=== PATIENT | male | born 1940 | race Caucasian/White ===

== ENCOUNTER 2017-05-29 10:09 | Inpatient (IN) ==
[2017-05-29] MEDS ORDERED: methylPREDNISolone 125 MG/2 ML VIAL IVP ONE (10:30)
[2017-05-29] MEDS ORDERED: Ipratropium/Albuterol Neb 3 ML IH ONE (10:30)
--- NOTE | 2017-05-29 10:34 | Emergency Department Note ---
Disposition Clinical Impression: Hypoxia Community acquired pneumonia Qualifiers: Laterality: left Lung location: unspecified part of lung Qualified Code(s): J18.9 - Pneumonia, unspecified organism Dyspnea Qualifiers: Dyspnea type: unspecified Qualified Code(s): R06.00 - Dyspnea, unspecified Disposition: Admitted As Inpatient Condition: Good Time of Disposition: 11:53 SOB HPI - General Chief Complaint: ED Shortness of Breath/Dyspnea Stated Complaint: RUPA Time Seen by Provider: 05/29/17 10:15 Source: patient Limitations: no limitations Nursing Notes Reviewed: Yes Vital Signs Reviewed: Yes - History of Present Illness 76-year-old male history of COPD, no home oxygenation supplementation presents to the ED for difficulty breathing. Gradually worsened over the past 3 days. He has been having more productive cough which changes sputum color. He has been using his Symbicort and albuterol as directed. Denies any fevers or chills. Denies any chest pain associated. He reports a history of COPD exacerbation many years ago that did not require hospitalization. Denies any recent long-distance travel or 6 contacts. No leg swelling. Denies any recent hospitalization within the 3 months. Reports a history of a blood clot which she currently takes Eliquis. Will treat them as a COPD exacerbation with a DuoNeb treatments and steroids. Will reassess and if not better may consider further imaging. Pt Subjective Complaint: shortness of breath, cough - Related Data Home Medications Medication Instructions Recorded Confirmed Aclidinium [place] [Tudorza 1 puff IH BID 05/29/17 05/29/17 Pressair] Albuterol Sulfate [Proair Hfa] 2 puff IH Q6H PRN 05/29/17 05/29/17 Apixaban [Eliquis] 5 mg PO BID 05/29/17 05/29/17 Budesonide/Formoterol 160/4.5 2 puff IH BIDR 05/29/17 05/29/17 [Symbicort 160/4.5] Carvedilol [Coreg] 25 mg PO BID 05/29/17 05/29/17 Furosemide [Lasix] 20 mg PO Q48H 05/29/17 05/29/17 HYDROcodone/Acet 10/325 mg [[place] 1 tab PO TID 05/29/17 05/29/17 10-325 mg] Losartan Potassium [Cozaar] 100 mg PO DAILY 05/29/17 05/29/17 Potassium Chloride [K-Tab ER] 20 meq PO Q48H 05/29/17 05/29/17 Pravastatin Sodium [Pravachol] 40 mg PO DAILY 05/29/17 05/29/17 Allergies Allergy/AdvReac Type Severity Reaction Status Date / Time doxycycline Allergy Rash Verified 05/29/17 10:14 Past Medical History - Past Medical History Attestation: Yes The following information was validated with the patient. Source: patient Medical history: Reports: cancer, CHF, COPD - Social History Smoking Status: Former smoker Alcohol use: Reports: occasionally Drug use: Reports: none Physical Exam - General Limitations: no limitations General appearance: alert, in no apparent distress - Head Head exam: atraumatic, normocephalic, normal inspection - Eye Eye exam: Present: normal appearance, PERRL, EOMI - ENT ENT exam: normal exam, normal oropharynx, mucous membranes moist - Neck Neck exam: Present: normal inspection, full ROM, trachea midline - Chest Chest inspection: Present: normal inspection, symmetric chest wall rise. Absent : tenderness - Respiratory Respiratory exam: Present: wheezes. Absent: stridor, accessory muscle use, prolonged expiratory phase - Expanded Respiratory Exam Location: wheezes: Right, Left, Lower, rales: Left, Lower, decreased breath sounds: Left - Cardiovascular Cardiovascular exam: Present: regular rate, normal rhythm, normal heart sounds - Abdominal Exam Abdominal exam: Present: soft, Non-Tender, normal bowel sounds. Absent: tenderness, distention, guarding, rebound, rigidity - Extremities Exam Extremities exam: Present: normal inspection, full ROM, calf tenderness. Absent : tenderness, normal capillary refill, pedal edema - Back Exam Back exam: Present: normal inspection, full ROM. Absent: tenderness - Neurological Exam Neurological exam: Present: alert, oriented X3 - Psychiatric Psychiatric exam: Present: normal affect, normal mood - Skin Skin exam: Present: warm, dry, intact, normal color. Absent: rash, cyanosis, diaphoresis Course - Reevaluation(s) Reevaluation #1: After breathing treatment his symptoms have improved however continues to be hypoxic off oxygen supplementation. He continues to sat 92 to 93% on 2 L nasal cannula. His lungs are more improved with some mild wheezing on the right. There is a more audible crackle in the left lower lung field. Review of his chest x-ray shows suggested of left lower lobe pneumonia. He denies any prior hospitalizations. This is likely a community acquired pneumonia. He only meets 1 of 4 SIRS criteria at this time for his tachycardia. He has a mild leukocytosis of 11. At this time he does not appear septic. Will treat them with IV antibiotics azithromycin and ceftriaxone. He will likely need admission. He is in agreement with this plan. Reevaluation #2: Patient admits that his oxygen level was been lower the past several months. 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 Duong did a 6 minute walk test and likely he may require oxygen in the future. He reports agonize medications earlier this morning including his losartan. His blood pressure has come down to systolic 90s. He denies any chest pain or worsening shortness of breath. He does not appear septic at this time. Will gently hydrated him normal saline. Blood cultures and elected have been ordered. Impression is community acquired pneumonia, dyspnea and hypoxia. There may be a concomitant COPD exacerbation on top of that. He will likely need scheduled duoneb treatment. - Consultations Consultation #1: Spoke with on-call hospitalist umu Tsang to admit for CAP and hypoxia. No further orders at this time Vital Signs Temperature 98.6 F 05/29/17 10:10 Pulse Rate 111 05/29/17 10:10 Respiratory Rate 22 05/29/17 10:10 Blood Pressure 105/66 05/29/17 10:10 O2 Sat by Pulse Oximetry 88 05/29/17 10:10 Temperature 98.6 F 05/29/17 10:10 Pulse Rate 102 05/29/17 12:12 Respiratory Rate 20 05/29/17 13:02 Blood Pressure 107/80 05/29/17 13:02 O2 Sat by Pulse Oximetry 98 05/29/17 12:12 Oxygen Delivery Oxygen Delivery Nasal Cannula Shortness of Breath/Dyspnea - MDM Narrative Medical decision making narrative: Patient was discussed with my attending physician who agrees with ED management and final disposition. They independently evaluated the patient. Please refer to their attestation to this encounter for additional information. This note was generated by [employer] voice recognition software and as a result grammatical or spelling errors may occur using this program. - Medical Records Medical records reviewed: Yes I reviewed the patient's medical records. - Lab Data Lab results reviewed: Yes I reviewed the patient's lab results. Result diagrams: 05/29/17 10:34 05/29/17 10:34 Lab Results 05/29/17 05/29/17 05/29/17 Range/Units 10:34 10:34 12:20 WBC 11.4 H (4.3-11.1) K/mcL RBC 4.36 (4.19-5.50) M/mcL Hgb 14.3 (12.9-16.9) g/dL Hct 42.9 (37.5-50.1) % MCV 98.4 (83.0-100.0) fL MCH 32.8 (28.0-33.3) pg MCHC 33.3 (31.6-35.5) g/dL RDW 13.4 (11.5-14.5) % Plt Count 110 L (140-400) K/mcL MPV 9.7 (9.4-12.4) fL Immature Gran % 2.0 (0-4) % Seg Neutrophils % 75.0 % Lymphocytes % 8.0 % Monocytes % 14.4 % Eosinophils % 0.4 % Basophils % 0.2 % Neutrophils # 8.6 (1.6-8.9) K/mcL Lymphocytes # 0.9 (0.6-4.6) K/mcL Monocytes # 1.7 H (0.0-1.3) K/mcL Eosinophils # 0.1 (0.0-0.6) K/mcL Basophils # 0.0 (0.0-0.2) K/mcL Sodium 138 (136-145) mEq/L Potassium 4.1 (3.5-4.5) mEq/L Chloride 105 (98-109) mEq/L Carbon Dioxide 23 (19-29) mEq/L BUN 28 H (8-26) mg/dL Creatinine 1.34 H (0.72-1.25) mg/dL Est GFR ( Amer) > 60 (> 60) Est GFR (Non-Af Amer) 52 L (> 60) BUN/Creatinine Ratio 21 (6-26) Glucose 135 H (70-99) mg/dL Calculated Osmolality 294 (280-300) Lactic Acid 1.6 (0.5-2.2) mmol/L Calcium 9.4 (8.6-10.8) mg/dL - Radiology Data Radiology results reviewed: Yes I reviewed the patient's radiology results. Chest X-Ray 05/29/17 10:30 IMPRESSION: Subtle patchy left lower lobe airspace disease suggesting left lower lobe pneumonia. Recommend clinical correlation and follow-up to resolution. D/ / Thor Taylor MD / Thor Taylor MD Interpreting Provider: Thor Taylor MD - EKG Data EKG attestation: Yes I reviewed and interpreted this EKG. EKG results narrative: EKG performed 1022 atrial fibrillation 10 2 bpm, QRS to, no ST elevations or depression, no T wave inversion, intervals are within normal limits. Compared to old EKG performed 11/03/2015 shows similar consistent findings no acute ischemic changes. Attestation Statement - Attestation Attestation: I examined this patient and my medical decision-making was reviewed with the Resident Physician. I agree with the documented findings, disposition and treatment plan as described except to the extent set forth below. Sx much improved after treatment in ED, but still borderline hypoxic with COPD exacerbation secondary to LLL pneumonia. Dr. Lira accepted for admission.
[2017-05-29 10:45] LABS: Basophils % 0.2 %; Eosinophils # 0.1 K/mcL (0.0-0.6); Eosinophils % 0.4 %; Hematocrit 42.9 % (37.5-50.1); Hemoglobin 14.3 g/dL (12.9-16.9); Lymphocytes # 0.9 K/mcL (0.6-4.6); Mean Corpuscular HGB Conc 33.3 g/dL (31.6-35.5); Mean Corpuscular Hemoglobin 32.8 pg (28.0-33.3); Mean Corpuscular Volume 98.4 fL (83.0-100.0); Mean Platelet Volume 9.7 fL (9.4-12.4); Monocytes # 1.7 K/mcL (0.0-1.3); Monocytes % 14.4 %; Neutrophils # 8.6 K/mcL (1.6-8.9); Platelet Count 110 K/mcL (140-400); Red Blood Count 4.36 M/mcL (4.19-5.50); Red Cell Distribution Width 13.4 % (11.5-14.5)
[2017-05-29 10:54] LABS: BUN/Creatinine Ratio 21 (6-26); Blood Urea Nitrogen 28 mg/dL (8-26); Calcium 9.4 mg/dL (8.6-10.8); Carbon Dioxide 23 mEq/L (19-29); Chloride 105 mEq/L (98-109); Glucose 135 mg/dL (70-99); Osmolality,Calculated 294 (280-300); Potassium 4.1 mEq/L (3.5-4.5); Sodium 138 mEq/L (136-145); eGFR For African Americans > 60 (> 60); eGFR For Non-African Americans 52 (> 60)
[2017-05-29] MEDS ORDERED: Albuterol 2.5 MG/3 ML NEBULIZER IH STA (11:40)
[2017-05-29] MEDS ORDERED: Azithromycin 500 MG in D5% in Water 250 ML IVPB ONE (11:51)
[2017-05-29] MEDS ORDERED: cefTRIAXone 1,000 MG in Water for inj. (sterile) 10 ML IVPB ONE (11:51)
[2017-05-29] MEDS ORDERED: 0.9 % Sodium Chloride 1,000 ML IVC ONE ×2 (11:52→13:11)
[2017-05-29] MEDS ORDERED: Naloxone 0.4 MG/ML INJ IVP PRN ×2 (12:58→20:07)
--- NOTE | 2017-05-29 13:15 | Internal Med History&Physical ---
<Arpan Bustos J - Last Filed: 05/29/17 13:51> Date of Encounter: 05/29/17 Time of Encounter: 13:02 Assessment and Plan (1) Community acquired pneumonia Status: Acute Afebrile, hemodynamically stable, A. fib rate of 102, mild leukocytosis lactate 1.6. Does not appear toxic; sepsis r/o. Given 1LNS in ED and BC sent x2. CXR show LLL PNA, remains mildly dyspneic on 3LNC. Does not wear home O2. SOB has improved with nebulizer and IV steroids Start Azithromycin 500mg IVPB QD, Ceftriaxone 1gm IVPD QD Obtain sputum; narrow ATB based on cultures Solumedrol 40mg IVP Q8hrs Duoneb JENA Qhrs Continuous tele and O2 monitoring CBC, BMP in the morning Qualifiers: Laterality: left Lung location: unspecified part of lung Qualified Code(s ): J18.9 - Pneumonia, unspecified organism (2) Hypoxia Status: Acute Was hypoxic on arrival, has improved since placing on 3LNC, and receiving nebulizer treatment. CXR dx of PNA. See plan above. (3) COPD (chronic obstructive pulmonary disease) Status: Acute History of COPD. Originally presented today with severe dyspnea and hypoxia, thought to have COPD exacerbation. No wheezing noted upon auscultation. CXR confirmed DX of community aquired PNA. Continues to have mild SOB tachypneic RR 20, 98% on 2LNC, he reports his SOB has improved since receiving IV solumedrol and nebulizer treatment. hold home meds See plan above Qualifiers: Qualified Code(s): J44.9 - Chronic obstructive pulmonary disease, unspecified (4) CHF (congestive heart failure) Status: Acute History of CHF, no pulmonary vascular congestion noted on chest x-ray. He does not have any extremity swelling, lungs clear diminished auscultation no rales noted. Continue Coreg. Qualifiers: Congestive heart failure type: unspecified congestive heart failure type Congestive heart failure chronicity: unspecified congestive heart failure chronicity Qualified Code(s): I50.9 - Heart failure, unspecified (5) Dyspnea Status: Acute Qualifiers: Dyspnea type: unspecified Qualified Code(s): R06.00 - Dyspnea, unspecified (6) DVT prophylaxis Status: Acute Patient is on [facility] Internal Medicine - H&P: HPI Chief complaint: Dyspneax 3 days Admitted From: Home Plans for Post Hospital Care: Home History of present illness: Mr. Stover is a 76 year old male with PMH of COPD, CHF, breast cancer and A. fib. He presents to [facility] today with a three-day history of shortness of breath which is made worse with activity. He states that approximately 3 days ago he began experiencing severe shortness of breath and a cough with a large amount of thick yellow sputum. He denies any ill contacts, He denies any fever, chills, fatigue, wheezing, chest pain, or palpitations. He does have a h/o COPD but reports he has never had a hospitalization for it. CBC show leukocytosis, CXR obtained in ED reveals LLL pneumonia. He is being admitted for further workup and evaluation. Past Med Surg Social Fam HX - Past Medical History Medical history: cancer, CHF, COPD - Social History Smoking Status: Former smoker Alcohol use: occasionally Drug use: none - Family History Mother Hx Family Neurologic Disorders: Yes (CVA) Father Hx Family Cardiac Disorders: Yes (CAD) Hx Family Neurologic Disorders: Yes (CVA) Internal Medicine - H&P: Meds Aclidinium [place] [Tudorza Pressair] 1 puff IH BID 05/29/17 [History] Albuterol Sulfate [Proair Hfa] 2 puff IH Q6H PRN 05/29/17 [History] Apixaban [Eliquis] 5 mg PO BID 05/29/17 [History] Budesonide/Formoterol 160/4.5 [Symbicort 160/4.5] 2 puff IH BIDR 05/29/17 [ History] Carvedilol [Coreg] 25 mg PO BID 05/29/17 [History] Furosemide [Lasix] 20 mg PO Q48H 05/29/17 [History] HYDROcodone/Acet 10/325 mg [[place] 10-325 mg] 1 tab PO TID 05/29/17 [History] Losartan Potassium [Cozaar] 100 mg PO DAILY 05/29/17 [History] Potassium Chloride [K-Tab ER] 20 meq PO Q48H 05/29/17 [History] Pravastatin Sodium [Pravachol] 40 mg PO DAILY 05/29/17 [History] Azithromycin [Zithromax [place]] 500 mg PO DAILY #3 tablet 05/31/17 [Rx] Cefdinir [Omnicef] 300 mg PO DAILY #5 capsule 05/31/17 [Rx] predniSONE [PredniSONE] See Taper PO DAILY@0800 #20 tablet 05/31/17 [Rx] 3 Allergy/AdvReac Type Severity Reaction Status Date / Time doxycycline Allergy Rash Verified 05/29/17 10:14 All Systems PM: A 10-system review of systems was performed and is negative for pertinent findings except as documented above in the HPI. - Constitutional Constitutional: no chills, no fatigue, no fever(s), no night sweats - EENT Eyes: no change in vision, no discharge, no pain, no photophobia Ears: no ear discharge, no ear pain, no tinnitus Nose, mouth and throat: no dysphagia, no nasal congestion, no nasal discharge, no neck pain, no post-nasal drip, no sore throat - Cardiovascular Cardiovascular ROS IM: no chest pain, no diaphoresis, no dyspnea, no lightheadedness, no palpitations, no syncope - Respiratory Respiratory: as per HPI, cough, chest congestion, excessive phlegm production, no dyspnea, no wheezing, no pain on inspiration, no pain with cough - Gastrointestinal Gastrointestinal: no abdominal pain, no diarrhea, no hematemesis, no hematochezia, no melena, no nausea, no vomiting - Musculoskeletal Musculoskeletal ROS IM: no numbness, no tingling - Integumentary Integumentary IM: no rash, no unusual bruising - Neurological Neurological ROS: no confusion, no convulsions, no focal weakness, no numbness, no tingling, no tremor(s) - Hematologic/Lymphatic Hematologic/Lymphatic: no easy bruising - Constitutional Vitals: Temp Pulse Resp BP Pulse Ox 98.6 F 102 14 108/72 98 05/29/17 10:10 05/29/17 12:12 05/29/17 12:12 05/29/17 12:12 05/29/17 12:12 General appearance: Present: cooperative, A&O X 3, no acute distress, answers questions appropriately - Head Head exam: Present: atraumatic, normocephalic - Eye Eye exam: Present: PERRL, conjuntiva pink, sclera anicteric Pupils: Present: PERRL - Neck Neck exam general surgery: Present: supple, trachea midline. Absent: lymphadenopathy - Respiratory Respiratory exam: Present: decreased breath sounds, CTAB, prolonged expiratory phase. Absent: accessory muscle use, rales, respiratory distress, rhonchi, wheezes - Cardiovascular Cardiovascular exam: Present: RRR, +S1, +S2. Absent: diastolic murmur, gallop, rubs, systolic murmur - GI/Abdominal GI/Abdominal exam: Present: normal bowel sounds, soft, no peritoneal signs. Absent: distended, tenderness - Extremities Exam Extremities exam: Present: normal capillary refill, normal inspection, warm, radial pulses palpable and symmetrical. Absent: calf tenderness, cyanotic, pedal edema - Neurological Exam Neurological exam: Present: CN II-XII intact, oriented X3, no focal deficits. Absent: pronater drift, facial droop, speech deficit - Skin Skin exam: Present: dry, intact Internal Med - H&P Results - Labs CBC & Chem 7: 05/29/17 10:34 05/29/17 10:34 - EKG Data -: EKG Interpreted by Myself - EKG Data Prior EKG available for review: yes When compared to previous EKG: there is no significant change EKG comments: History of fibrillation rate of 101 05/29/17 13:22 - Diagnostic Studies Chest x-ray Status: image reviewed by me Additional comments: LLL pneumonia - VTE Reasons for not Prescribing Prophylaxis: Not indicated-Anticoagulated or INR therapeutic <Troy Faria P - Last Filed: 06/02/17 18:52> Date of Encounter: 06/02/17 Internal Medicine - H&P: HPI History of present illness: Mr. Stover is a 76 year old male All Systems PM: A 10-system review of systems was performed and is negative for pertinent findings except as documented above in the HPI. - Constitutional Vitals: Temp Pulse Resp BP Pulse Ox 97.5 F L 92 16 109/75 91 05/31/17 11:06 05/31/17 11:06 05/31/17 11:06 05/31/17 11:06 05/31/17 11:06 Internal Med - H&P Results - Labs CBC & Chem 7: 05/31/17 04:50 05/31/17 04:50 - Attending Attestation I examined this patient and my medical decision-making was reviewed with the Resident Physician/OB/GYN NURSE. I agree with the documented findings, disposition and treatment plan as described except to the extent set forth below. Patient seen and examined. Chart reviewed. I agree with the recommendations and plan bronchitis Mr. Bustos.
[2017-05-29] MEDS ORDERED: *HR* HYDROcodone/Acet 10/325 mg TABLET PO PRN ×2 (13:21→14:16)
[2017-05-29] MEDS: Furosemide 20 MG TABLET PO SCH (14:00)
[2017-05-29] MEDS ORDERED: *HR* HYDROcodone/Acet 10/325 mg TABLET PO SCH (15:00)
[2017-05-29] MEDS: Ipratropium/Albuterol Neb 3 ML IH SCH ×3 (16:01→23:50)
[2017-05-29] MEDS: MethylPREDNISolone 40 MG/ML VIAL IVP SCH (17:29)
[2017-05-29] MEDS: APIXABAN 5 MG TABLET PO SCH (20:01)
[2017-05-29] MEDS: *HR* HYDROcodone/Acet 10/325 mg TABLET PO PRN (20:01)
[2017-05-30] MEDS: MethylPREDNISolone 40 MG/ML VIAL IVP SCH ×2 (00:05→09:10)
[2017-05-30] MEDS: Ipratropium/Albuterol Neb 3 ML IH SCH ×5 (03:59→20:53)
[2017-05-30 04:30] LABS: Basophils % 0.2 %; Eosinophils % 0.2 %; Hematocrit 37.9 % (37.5-50.1); Immature Granulocytes % 1.8 % (0-4); Lymphocytes # 0.6 K/mcL (0.6-4.6); Lymphocytes % 10.2 %; Mean Corpuscular Hemoglobin 32.5 pg (28.0-33.3); Mean Corpuscular Volume 98.4 fL (83.0-100.0); Mean Platelet Volume 9.6 fL (9.4-12.4); Monocytes # 0.2 K/mcL (0.0-1.3); Monocytes % 3.1 %; Neutrophils # 5.2 K/mcL (1.6-8.9); Platelet Count 100 K/mcL (140-400); Red Blood Count 3.85 M/mcL (4.19-5.50); Red Cell Distribution Width 13.3 % (11.5-14.5); Segmented Neutrophils % 84.5 %
[2017-05-30 04:36] LABS: BUN/Creatinine Ratio 28 (6-26); Blood Urea Nitrogen 30 mg/dL (8-26); Calcium 8.3 mg/dL (8.6-10.8); Carbon Dioxide 21 mEq/L (19-29); Chloride 109 mEq/L (98-109); Glucose 146 mg/dL (70-99); Osmolality,Calculated 295 (280-300); Potassium 4.1 mEq/L (3.5-4.5); Sodium 138 mEq/L (136-145); eGFR For African Americans > 60 (> 60); eGFR For Non-African Americans > 60 (> 60)
[2017-05-30 04:47] LABS: Hemoglobin 12.5 g/dL (12.9-16.9)
--- NOTE | 2017-05-30 09:06 | Internal Med Progress Note ---
<Alexis Pérez - Last Filed: 05/30/17 13:20> Date of Encounter: 05/30/17 Time of Encounter: 09:04 - Assessment and plan (1) Community acquired pneumonia Current Visit: Yes Status: Acute Assessment and plan: Left lower lobe pneumonia on chest x-ray Mild leukocytosis on presentation has resolved today Improvement with nebulizer and IV steroids Continue azithromycin and ceftriaxone Blood cultures pending Qualifiers: Laterality: left Lung location: unspecified part of lung Qualified Code(s ): J18.9 - Pneumonia, unspecified organism (2) Hypoxia Current Visit: Yes Status: Acute Assessment and plan: Improved with breathing treatments O2 saturation 92% on 3 L nasal cannula (3) COPD (chronic obstructive pulmonary disease) Current Visit: Yes Status: Acute Assessment and plan: No wheezing on auscultation Patient has left lower lobe pneumonia on CXR Continue IV Solu-Medrol and breathing treatments We will transition to PO steroids tomorrow Patient has qualified for home oxygen in the past but refused We will requalify Qualifiers: Qualified Code(s): J44.9 - Chronic obstructive pulmonary disease, unspecified (4) CHF (congestive heart failure) Current Visit: Yes Status: Acute Assessment and plan: No pulmonary vascular congestion on CXR and chest auscultation clear No pedal edema Qualifiers: Congestive heart failure type: unspecified congestive heart failure type Congestive heart failure chronicity: unspecified congestive heart failure chronicity Qualified Code(s): I50.9 - Heart failure, unspecified (5) DVT prophylaxis Current Visit: Yes Status: Acute Assessment and plan: Patient is on Eliquis - Subjective Interval history: 68-year-old male here for exertional dyspnea x3 days. Contributory medical history: COPD, CHF, A. fib. WBC = 11.4 on admission. CXR: LLL pneumonia Patient seen and examined at bedside this morning. He states his breathing is "much better". Denies new complaints - Constitutional Vitals: Temp Pulse Resp BP Pulse Ox 97.7 F 97 16 122/83 92 05/30/17 07:36 05/30/17 07:36 05/30/17 07:53 05/30/17 07:36 05/30/17 07:53 General appearance: Present: cooperative, A&O X 3, no acute distress, answers questions appropriately - Respiratory Respiratory exam: Present: decreased breath sounds, prolonged expiratory phase. Absent: rales, respiratory distress, rhonchi, tachypnea - Cardiovascular Cardiovascular exam: Present: RRR, +S1, +S2. Absent: diastolic murmur, gallop, rubs, systolic murmur - GI/Abdominal GI/Abdominal exam: Present: normal bowel sounds, soft, no peritoneal signs. Absent: distended, tenderness - Extremities Exam Extremities exam: Present: warm, radial pulses palpable and symmetrical. Absent : calf tenderness, cyanotic, pedal edema - Neurological Exam Neurological exam: Present: alert, oriented X3, no focal deficits Internal Medicine: Result - Labs CBC & Chem 7: 05/30/17 03:57 05/30/17 03:57 Labs: Short CBC 05/30/17 Range/Units 03:57 WBC 6.2 (4.3-11.1) K/mcL Hgb 12.5 L D (12.9-16.9) g/dL Hct 37.9 (37.5-50.1) % Plt Count 100 L (140-400) K/mcL Neutrophils # 5.2 (1.6-8.9) K/mcL BMP 05/30/17 03:57 Sodium 138 Potassium 4.1 Chloride 109 Carbon Dioxide 21 BUN 30 H Creatinine 1.09 Glucose 146 H Calcium 8.3 L - VTE Reasons for not Prescribing Prophylaxis: Not indicated-Anticoagulated or INR therapeutic Consult Discharge Plan - Plan Referrals: Francisca Anderson MD [Primary Care Provider] - (WEB REQUEST SENT ON 05/30/17) <Terry Beltran - Last Filed: 05/30/17 15:16> Date of Encounter: 05/30/17 - Constitutional Vitals: Temp Pulse Resp BP Pulse Ox 97.8 F 84 16 105/71 95 05/30/17 11:14 05/30/17 11:14 05/30/17 11:17 05/30/17 11:14 05/30/17 11:17 Internal Medicine: Result - Labs CBC & Chem 7: 05/30/17 03:57 05/30/17 03:57 Labs: Short CBC 05/30/17 Range/Units 03:57 WBC 6.2 (4.3-11.1) K/mcL Hgb 12.5 L D (12.9-16.9) g/dL Hct 37.9 (37.5-50.1) % Plt Count 100 L (140-400) K/mcL Neutrophils # 5.2 (1.6-8.9) K/mcL [facility] 05/30/17 03:57 Sodium 138 Potassium 4.1 Chloride 109 Carbon Dioxide 21 BUN 30 H Creatinine 1.09 Glucose 146 H Calcium 8.3 L - Attending Attestation I independently saw and examined this patient on 05/30/17, plan of care is as detailed in the resident physician's documentation Patient is seen and evaluated at the bedside. 76-year-old male patient with past medical history of COPD, atrial fibrillation , possible chronic respiratory failure as patient is safe to have declined home oxygen in the past, CHF unspecified and breast cancer. Patient is admitted and being managed for left lower lobe pneumonia as well as hypoxia. He seen and evaluated at the bedside, he reports he has makes a lot of clinical improvement, he sees a shortness of breath has improved. He still requiring 3 L of oxygen by nasal cannula. Physical examination: Vital signs are stable, alert awake oriented 3, no neurologic deficits, he moves all his limbs and follows commands speech deficits. He has cyanotic lips. He is not pale. Chest is clear to auscultation bilaterally. He is not wheezing, he has no rhonchi or crackles. Heart sounds are S1 and S2 and regular. No murmurs audible. Abdomen is soft and non-tender. Lower extremities with no pedal edema, multiple healed skin lesions. Labs and imaging reviewed leukocytosis has improved, chemistries within normal limits this morning, lactate is normal, chest x-ray shows left lower lobe pneumonia. Assessment/Plan: Community-acquired pneumonia, causal organism unknown at this time. Possibly streptococcal. Continue azithromycin and ceftriaxone. COPD exacerbation continued to, continue IV steroids for today, and change to by mouth prednisone tomorrow. Possible chronic respiratory failure: Chart review reveals patient declined home oxygen in the past. Continue oxygen supplement. We will requalify patient for home oxygen before discharge. CHF is nonspecific. Echocardiogram done in 2016 in this facility was essentially unremarkable. Continue home medications. Patient is euvolemic. Atrial fibrillation rate is controlled, continue current medications and anticoagulation. Rest as in resident physician's documentation
[2017-05-30] MEDS: cefTRIAXone 1,000 MG in Water for inj. (sterile) 10 ML IVP SCH (09:10)
[2017-05-30] MEDS: APIXABAN 5 MG TABLET PO SCH ×2 (09:11→20:56)
[2017-05-30] MEDS: Azithromycin 500 MG in D5% in Water 250 ML IVPB SCH (10:08)
--- NOTE | 2017-05-30 16:53 | Electrocardiograph Report ---
[address] [place] [address] Test Date: 2017-05-29 Pat Name: Vernon Stover Department: 103 Room: 2A25 Gender: Center Customer Service Associate: RAO : 1940 Requested By: Stephen Hardy Order Number: [id number] Reading MD: Delfino Stephens DO Measurements Intervals [place] Rate: 102 P: MI: 0 QRS: 42 QRSD: 92 T: 30 QT: 334 QTc: 393 Interpretive Statements Atrial fibrillation with RVR PVCs Low QRS voltage in the extremity leads Possible anteroseptal infarction, age undetermined Electronically Signed On 05-30-2017 16:51:59 EST by Delfino Stephens DO
[2017-05-30] MEDS ORDERED: MethylPREDNISolone 40 MG/ML VIAL IVP SCH (18:00)
[2017-05-30] MEDS: *HR* HYDROcodone/Acet 10/325 mg TABLET PO PRN (20:56)
[2017-05-31] MEDS: Ipratropium/Albuterol Neb 3 ML IH SCH ×3 (00:08→09:13)
[2017-05-31 05:20] LABS: Basophils % 0.2 %; Hematocrit 36.9 % (37.5-50.1); Hemoglobin 12.3 g/dL (12.9-16.9); Immature Granulocytes % 3.2 % (0-4); Lymphocytes # 0.6 K/mcL (0.6-4.6); Lymphocytes % 9.4 %; Mean Corpuscular HGB Conc 33.3 g/dL (31.6-35.5); Mean Corpuscular Hemoglobin 32.5 pg (28.0-33.3); Mean Corpuscular Volume 97.6 fL (83.0-100.0); Mean Platelet Volume 9.8 fL (9.4-12.4); Monocytes # 0.4 K/mcL (0.0-1.3); Monocytes % 6.2 %; Neutrophils # 5.2 K/mcL (1.6-8.9); Platelet Count 113 K/mcL (140-400); Red Blood Count 3.78 M/mcL (4.19-5.50); Red Cell Distribution Width 13.3 % (11.5-14.5)
[2017-05-31 05:34] LABS: BUN/Creatinine Ratio 33 (6-26); Blood Urea Nitrogen 32 mg/dL (8-26); Calcium 8.3 mg/dL (8.6-10.8); Carbon Dioxide 20 mEq/L (19-29); Chloride 110 mEq/L (98-109); Glucose 140 mg/dL (70-99); Osmolality,Calculated 301 (280-300); Potassium 3.8 mEq/L (3.5-4.5); Sodium 141 mEq/L (136-145); eGFR For African Americans > 60 (> 60); eGFR For Non-African Americans > 60 (> 60)
[2017-05-31] MEDS ORDERED: predniSONE 20 MG TABLET PO SCH (08:00)
[2017-05-31] MEDS: APIXABAN 5 MG TABLET PO SCH (08:35)
[2017-05-31] MEDS: cefTRIAXone 1,000 MG in Water for inj. (sterile) 10 ML IVP SCH (08:45)
[2017-05-31] MEDS: Azithromycin 500 MG in D5% in Water 250 ML IVPB SCH (08:51)
--- NOTE | 2017-05-31 10:42 | Discharge Summary ---
Date of Encounter: 05/31/17 Time of Encounter: 10:10 - Discharge Diagnosis (1) CHF (congestive heart failure) Priority: Secondary Status: Chronic Qualifiers: Congestive heart failure type: unspecified congestive heart failure type Congestive heart failure chronicity: unspecified congestive heart failure chronicity Qualified Code(s): I50.9 - Heart failure, unspecified (2) COPD (chronic obstructive pulmonary disease) Priority: Primary Status: Acute Qualifiers: COPD type: COPD with acute exacerbation Qualified Code(s): J44.1 - Chronic obstructive pulmonary disease with (acute) exacerbation (3) Community acquired pneumonia Priority: Primary Status: Acute Qualifiers: Laterality: left Lung location: unspecified part of lung Qualified Code(s ): J18.9 - Pneumonia, unspecified organism (4) DVT prophylaxis Priority: Secondary Status: Acute (5) Hypoxia Priority: Primary Status: Chronic - Discharge Medications Prescriptions: Azithromycin [Zithromax Tri-Lorne] 500 mg PO DAILY #3 tablet Cefdinir [Omnicef] 300 mg PO DAILY #5 capsule predniSONE [PredniSONE] See Taper PO DAILY@0800 #20 tablet Home Medications: Aclidinium [place] [Tudorza Pressair] 1 puff IH BID 05/29/17 [History] Albuterol Sulfate [Proair Hfa] 2 puff IH Q6H PRN 05/29/17 [History] Apixaban [Eliquis] 5 mg PO BID 05/29/17 [History] Budesonide/Formoterol 160/4.5 [Symbicort 160/4.5] 2 puff IH BIDR 05/29/17 [ History] Carvedilol [Coreg] 25 mg PO BID 05/29/17 [History] Furosemide [Lasix] 20 mg PO Q48H 05/29/17 [History] HYDROcodone/Acet 10/325 mg [[place] 10-325 mg] 1 tab PO TID 05/29/17 [History] Losartan Potassium [Cozaar] 100 mg PO DAILY 05/29/17 [History] Potassium Chloride [K-Tab ER] 20 meq PO Q48H 05/29/17 [History] Pravastatin Sodium [Pravachol] 40 mg PO DAILY 05/29/17 [History] Azithromycin [Zithromax [place]] 500 mg PO DAILY #3 tablet 05/31/17 [Rx] Cefdinir [Omnicef] 300 mg PO DAILY #5 capsule 05/31/17 [Rx] predniSONE [PredniSONE] See Taper PO DAILY@0800 #20 tablet 05/31/17 [Rx] Allergies/Adverse Reactions: 3 Allergy/AdvReac Type Severity Reaction Status Date / Time doxycycline Allergy Rash Verified 05/29/17 10:14 Date of admission: 05/29/17 20:08 Primary care physician: Francisca Anderson MD Discharging clinician: Terry Beltran Anticipated date of discharge: 05/31/17 - Patient Status Disposition: Home, Self-Care Condition: Good Functional capacity at discharge: independent ambulation Overall status at discharge: patient is back to baseline - Discharge Instructions Follow Up With: Francisca Anderson MD [Primary Care Provider] - (WEB REQUEST SENT ON 05/30/17) - Diet and Activity Activity: resume usual activities as tolerated, wear oxygen at all times Diet: advance to your usual diet Interval History: See hospital course. Hospital course: Mr. Stover is a 76 year old male with medical history of COPD, atrial fibrillation, possible chronic respiratory failure as patient is said to have declined home oxygen in the past, unspecified CHF, and breast cancer. Patient was admitted and managed for COPD exacerbation, hypoxia, and left lower lobe pneumonia. Pneumonia is community-acquired, possibly due to streptococcal pneumonia. Patient was admitted and managed with oxygen replacement, intravenous antibiotics, intravenous steroids and nebs. Patient is seen and evaluated at the bedside this morning, he reports significant clinical improvement. The patient qualified for home oxygen. He is stable to be discharged home to complete his antibiotic course at home, he is discharged on prednisone taper, and he is encouraged to follow up with his primary care doctor. He is also educated to keep his oxygen on continuously. His chronic medical conditions diabetes CHF is stable he is euvolemic. Atrial fibrillation heart rate was controlled throughout his stay, and he is anticoagulated. Follow-up with primary care doctor. Plan of care discussed, verbalizes understanding. - Time Spent with Patient Total time spent providing and/or coordinating discharge services: Greater than 30 minutes (45 minutes spent on face to face encounter, chart review, med rec, and O2 and med prescription) - Constitutional Vitals: Temp Pulse Resp BP Pulse Ox 97.4 F L 108 18 125/73 97 05/31/17 07:08 05/31/17 07:08 05/31/17 09:14 05/31/17 07:08 05/31/17 10:18 General appearance: Present: cooperative, A&O X 3, pleasant, no acute distress, answers questions appropriately - Head Head exam: Present: atraumatic, normocephalic - Eye Eye exam: Present: PERRL, conjuntiva pink, sclera anicteric Pupils: Present: PERRL - Neck Neck exam general surgery: Present: supple, trachea midline. Absent: lymphadenopathy - Respiratory Respiratory exam: Present: CTAB, wheezes (few scattered expiratory wheezes, no rhonchi). Absent: accessory muscle use, rales, rhonchi - Cardiovascular Cardiovascular exam: Present: RRR, +S1, +S2. Absent: diastolic murmur, gallop, rubs, systolic murmur - GI/Abdominal GI/Abdominal exam: Present: normal bowel sounds, soft, no peritoneal signs. Absent: distended, tenderness - Extremities Exam Extremities exam: Present: warm, radial pulses palpable and symmetrical. Absent : calf tenderness, cyanotic, pedal edema - Neurological Exam Neurological exam: Present: alert, CN II-XII intact, oriented X3, no focal deficits. Absent: pronater drift, facial droop, speech deficit - Skin Skin exam: Present: dry, intact - VTE Reasons for not Prescribing Prophylaxis: Not indicated-Anticoagulated or INR therapeutic
[2017-05-31 11:09] VITALS: BP 109/75
[2017-05-31] MEDS: Furosemide 20 MG TABLET PO SCH (13:38)
== END 2017-05-31 14:25 | disposition home or self-care (01) | DRG 190 ==
LOC: EMEROO 10:09 → 2ANU 10:09
PROVIDERS: ADMIT Internal Medicine; ATTEND Internal Medicine

== ENCOUNTER 2018-02-25 17:39 | Inpatient (IN) ==
[2018-02-25] MEDS ORDERED: 0.9 % Sodium Chloride 1,000 ML IVC ONE (18:37)
--- NOTE | 2018-02-25 19:01 | Emergency Department Note ---
Disposition Clinical Impression: HCAP (healthcare-associated pneumonia) Disposition: Admitted As Inpatient Condition: Good Referrals: Francisca Anderson MD [Primary Care Provider] - Forms: ED Satisfaction Letter Time of Disposition: 19:39 SOB HPI - General Chief Complaint: ED Shortness of Breath/Dyspnea Stated Complaint: RUPA Time Seen by Provider: 02/25/18 18:32 Source: patient, family Limitations: no limitations Nursing Notes Reviewed: Yes Vital Signs Reviewed: Yes - History of Present Illness 77 year odl male presents to the Ed with complaints of exetional dyspnea and difficulty with breathing and states that this feels simliar to his episode of pnuemonia tht he had in the past and was most recently admited to the hospital for pnuemonia and states that he did feel better then but now is getting worse and states that he does not have productive cough or a fever but is needing supplemental oxygen for home. PAtinet denies chest pain or hemopytosis. Pt Subjective Complaint: shortness of breath Onset (ago): day(s) Context: recent illness Severity: moderate Consistency/Duration: intermittent - Related Data Home Medications Medication Instructions Recorded Confirmed Aclidinium [place] [Tudorza 1 puff IH BID 05/29/17 11/06/17 Pressair] Albuterol Sulfate [Proair Hfa] 2 puff IH Q6H PRN 05/29/17 11/06/17 Apixaban [Eliquis] 5 mg PO BID 05/29/17 11/06/17 Budesonide/Formoterol 160/4.5 2 puff IH BIDR 05/29/17 11/06/17 [Symbicort 160/4.5] Carvedilol [Coreg] 25 mg PO BID 05/29/17 11/06/17 Furosemide [Lasix] 20 mg PO Q48H 05/29/17 11/06/17 HYDROcodone/Acet 10/325 mg [[place] 1 tab PO TID 05/29/17 11/06/17 10-325 mg] Losartan Potassium [Cozaar] 100 mg PO DAILY 05/29/17 11/06/17 Potassium Chloride [K-Tab ER] 20 meq PO Q48H 05/29/17 11/06/17 Pravastatin Sodium [Pravachol] 40 mg PO DAILY 05/29/17 11/06/17 Bill Multivit For Men [place] 1 tab PO DAILY 11/06/17 11/06/17 Allergies Allergy/AdvReac Type Severity Reaction Status Date / Time doxycycline Allergy Rash Verified 05/29/17 10:14 All systems ED: reviewed and negative except as stated. Constitutional: Reports: as per HPI. Denies: fever, chills, weakness ENT ED: Denies: congestion Cardiovascular: Reports: dyspnea on exertion, edema. Denies: chest pain, orthopnea, syncope, paroxysmal nocturnal dyspnea Respiratory: Reports: as per HPI, cough, dyspnea. Denies: wheezes, hemoptysis, stridor, sputum production Gastrointestinal: Denies: abdominal pain, nausea, vomiting, diarrhea, constipation Genitourinary: Denies: dysuria, frequency Neurological: Denies: headache, weakness, numbness, paresthesias, vertigo Past Medical History - Past Medical History [facility] Narrative: Patient describes a history of hypertension, hyperlipidemia, COPD, CHF, pneumonia, atrial fibrillation with ablation and anticoagulation, and breast cancer with surgical resection. Patient denies any patient of acute coronary syndrome Source: patient Medical history: Reports: arthritis, atrial fibrillation, cancer, CHF, COPD, hyperlipidemia, hypertension, malignancy, osteoporosis, pulmonary embolus, venous stasis, other Surgical history: Reports: breast surgery Psychiatric history: Reports: no psych history - Social History Smoking Status: Former smoker Alcohol use: Reports: occasionally Drug use: Reports: none Physical Exam - General Limitations: no limitations General appearance: alert, in no apparent distress - Head Head exam: atraumatic, normocephalic - Eye Eye exam: Present: normal appearance, PERRL - ENT ENT exam: normal oropharynx, mucous membranes moist - Chest Chest inspection: Present: normal inspection - Respiratory Respiratory exam: Present: wheezes (right anterior lung), other (decreased breath sounds bilaterally) - Cardiovascular Cardiovascular exam: Present: regular rate, normal rhythm, normal heart sounds - Abdominal Exam Abdominal exam: Present: soft, Non-Tender, distention - Extremities Exam Extremities exam: Present: normal inspection, full ROM. Absent: tenderness, pedal edema - Expanded Lower Extremity Exam Ankle exam: Present: other (+3/4 pitting edema of right ankle) - Neurological Exam Neurological exam: Present: alert, oriented X3 - Psychiatric Psychiatric exam: Present: normal affect, normal mood - Skin Skin exam: Present: warm, dry - Expanded Skin Exam Type of lesion: Present: rash Distribution: generalized Description: Present: purpuric Course Course Narrative: we will do a cardiopulmnoary wokr and rule out PE and HCAP - Reevaluation(s) Reevaluation #1: D=dimer is negative although CXR confirms pnueoina and the concern is for HCAP. We will start HCAP therpay aBX and then admit to medicine Time: 19:38 Vital Signs Temperature 98.4 F 02/25/18 17:40 Pulse Rate 100 02/25/18 17:40 Respiratory Rate 18 02/25/18 17:40 Blood Pressure 133/92 02/25/18 17:40 O2 Sat by Pulse Oximetry 95 02/25/18 17:40 Temperature 98.4 F 02/25/18 17:40 Pulse Rate 100 02/25/18 17:40 Respiratory Rate 18 02/25/18 17:40 Blood Pressure 133/92 02/25/18 17:40 O2 Sat by Pulse Oximetry 100 02/25/18 17:40 Oxygen Delivery Oxygen Delivery Nasal Cannula Shortness of Breath/Dyspnea - Medical Records Medical records reviewed: Yes I reviewed the patient's medical records. - Lab Data Result diagrams: 02/25/18 18:00 02/25/18 18:00 Lab Results 02/25/18 02/25/18 02/25/18 Range/Units 18:00 18:00 18:00 WBC 11.1 (4.3-11.1) K/mcL RBC 4.43 (4.19-5.50) M/mcL Hgb 14.7 (12.9-16.9) g/dL Hct 44.1 (37.5-50.1) % MCV 99.5 (83.0-100.0) fL MCH 33.2 (28.0-33.3) pg MCHC 33.3 (31.6-35.5) g/dL RDW 13.2 (11.5-14.5) % Plt Count 104 L (140-400) K/mcL MPV 10.0 (9.4-12.4) fL Immature Gran % 1.5 (0-4) % Seg Neutrophils % 69.8 % Lymphocytes % 11.0 % Monocytes % 17.5 % Eosinophils % 0.1 % Basophils % 0.1 % Neutrophils # 7.8 (1.6-8.9) K/mcL Lymphocytes # 1.2 (0.6-4.6) K/mcL Monocytes # 2.0 H (0.0-1.3) K/mcL Eosinophils # 0.0 (0.0-0.6) K/mcL Basophils # 0.0 (0.0-0.2) K/mcL PT 20.7 H (9.4-12.1) Seconds INR 1.8 APTT 34.0 (26.0-36.0) Seconds D-Dimer 232 (0-500) ng/mLFEU Sodium 139 (136-145) mEq/L Potassium 4.2 (3.5-5.1) mEq/L Chloride 103 (98-107) mEq/L Carbon Dioxide 26 (23-29) mEq/L BUN 22 (8-23) mg/dL Creatinine 0.99 (0.70-1.30) mg/dL Est GFR ( Amer) > 60 (> 60) Est GFR (Non-Af Amer) > 60 (> 60) BUN/Creatinine Ratio 22 (6-26) Glucose 99 (70-105) mg/dL Calculated Osmolality 291 (280-300) Lactic Acid (0.5-2.2) mmol/L Calcium 9.5 (8.6-10.3) mg/dL Phosphorus 3.3 (2.7-4.5) mg/dL Magnesium 2.0 (1.6-2.6) mg/dL Total Bilirubin 1.0 (0.3-1.0) mg/dL Direct Bilirubin 0.2 (0.0-0.2) mg/dL Indirect Bilirubin 0.8 (0.0-1.2) mg/dL AST 20 (13-39) Units/L ALT 10 (7-52) Units/L Alkaline Phosphatase 70 (34-104) Units/L Troponin I 0.03 (< 0.04) ng/mL Serum Total Protein 7.6 (6.4-8.9) g/dL Albumin 4.2 (3.5-5.7) g/dL Globulin 3.4 (2.4-3.5) g/dL Albumin/Globulin Ratio 1.2 (1.1-2.2) 02/25/18 Range/Units 19:02 WBC (4.3-11.1) K/mcL RBC (4.19-5.50) M/mcL Hgb (12.9-16.9) g/dL Hct (37.5-50.1) % MCV (83.0-100.0) fL MCH (28.0-33.3) pg MCHC (31.6-35.5) g/dL RDW (11.5-14.5) % Plt Count (140-400) K/mcL MPV (9.4-12.4) fL Immature Gran % (0-4) % Seg Neutrophils % % Lymphocytes % % Monocytes % % Eosinophils % % Basophils % % Neutrophils # (1.6-8.9) K/mcL Lymphocytes # (0.6-4.6) K/mcL Monocytes # (0.0-1.3) K/mcL Eosinophils # (0.0-0.6) K/mcL Basophils # (0.0-0.2) K/mcL PT (9.4-12.1) Seconds INR APTT (26.0-36.0) Seconds D-Dimer (0-500) ng/mLFEU Sodium (136-145) mEq/L Potassium (3.5-5.1) mEq/L Chloride (98-107) mEq/L Carbon Dioxide (23-29) mEq/L BUN (8-23) mg/dL Creatinine (0.70-1.30) mg/dL Est GFR ( Amer) (> 60) Est GFR (Non-Af Amer) (> 60) BUN/Creatinine Ratio (6-26) Glucose (70-105) mg/dL Calculated Osmolality (280-300) Lactic Acid 1.3 (0.5-2.2) mmol/L Calcium (8.6-10.3) mg/dL Phosphorus (2.7-4.5) mg/dL Magnesium (1.6-2.6) mg/dL Total Bilirubin (0.3-1.0) mg/dL Direct Bilirubin (0.0-0.2) mg/dL Indirect Bilirubin (0.0-1.2) mg/dL AST (13-39) Units/L ALT (7-52) Units/L Alkaline Phosphatase (34-104) Units/L Troponin I (< 0.04) ng/mL Serum Total Protein (6.4-8.9) g/dL Albumin (3.5-5.7) g/dL Globulin (2.4-3.5) g/dL Albumin/Globulin Ratio (1.1-2.2)
[2018-02-25 19:02] LABS: Basophils % 0.1 %; Eosinophils % 0.1 %; Hematocrit 44.1 % (37.5-50.1); Hemoglobin 14.7 g/dL (12.9-16.9); Immature Granulocytes % 1.5 % (0-4); Lymphocytes # 1.2 K/mcL (0.6-4.6); Mean Corpuscular HGB Conc 33.3 g/dL (31.6-35.5); Mean Corpuscular Hemoglobin 33.2 pg (28.0-33.3); Mean Corpuscular Volume 99.5 fL (83.0-100.0); Monocytes % 17.5 %; Neutrophils # 7.8 K/mcL (1.6-8.9); Platelet Count 104 K/mcL (140-400); Red Blood Count 4.43 M/mcL (4.19-5.50); Red Cell Distribution Width 13.2 % (11.5-14.5); Segmented Neutrophils % 69.8 %
[2018-02-25 19:11] LABS: INR 1.8; Prothrombin Time 20.7 Seconds (9.4-12.1); Troponin I 0.03 ng/mL (< 0.04)
[2018-02-25 19:12] LABS: Alanine Aminotransferase 10 Units/L (7-52); Albumin 4.2 g/dL (3.5-5.7); Albumin/Globulin Ratio 1.2 (1.1-2.2); Alkaline Phosphatase 70 Units/L (34-104); Aspartate Amino Transferase 20 Units/L (13-39); BUN/Creatinine Ratio 22 (6-26); Bilirubin,Direct 0.2 mg/dL (0.0-0.2); Bilirubin,Indirect 0.8 mg/dL (0.0-1.2); Blood Urea Nitrogen 22 mg/dL (8-23); Calcium 9.5 mg/dL (8.6-10.3); Carbon Dioxide 26 mEq/L (23-29); Chloride 103 mEq/L (98-107); Globulin 3.4 g/dL (2.4-3.5); Glucose 99 mg/dL (70-105); Osmolality,Calculated 291 (280-300); Phosphorous 3.3 mg/dL (2.7-4.5); Potassium 4.2 mEq/L (3.5-5.1); Sodium 139 mEq/L (136-145); Total Protein 7.6 g/dL (6.4-8.9); eGFR For Non-African Americans > 60 (> 60)
[2018-02-25] MEDS ORDERED: Ipratropium/Albuterol Neb 3 ML IH ONE (19:30)
[2018-02-25] MEDS ORDERED: methylPREDNISolone 125 MG/2 ML VIAL IVP ONE (19:30)
[2018-02-25] MEDS ORDERED: Piperacillin/Tazobactam 3.375 GM in 0.9 % Sodium Chloride Mini Bag 100 ML IVPB ONE (19:39)
[2018-02-25] MEDS ORDERED: Levofloxacin 750 MG/150 ML 750 MG/150 ML BAG IVPB ONE (19:40)
[2018-02-25] MEDS ORDERED: Naloxone 0.4 MG/ML INJ IVP PRN (19:59)
[2018-02-25] MEDS: Ipratropium/Albuterol Neb 3 ML IH SCH (23:37)
[2018-02-25] MEDS: 0.9 % Sodium Chloride 1,000 ML IVC SCH (23:47)
[2018-02-26] MEDS: MethylPREDNISolone 40 MG/ML VIAL IVP SCH ×4 (00:37→16:54)
--- NOTE | 2018-02-26 01:36 | Internal Med History&Physical ---
Date of Encounter: 02/25/18 Time of Encounter: 20:00 Internal Medicine - H&P: HPI Chief complaint: Worsening Dyspnea on Exertion History of present illness: Mr. Stover is a 77 year old male with a past medical history of COPD, CHF, hypertension atrial fibrillation status post ablation who presents with worsening dyspnea upon exertion for the past 3 days. Per ED reports patient had recent hospitalization and treatment for pneumonia, however, records cannot be verified nor corroborated by the patient. Patient reports feeling short of breath with exertion which began on Friday. He states that he is unable to go about his usual daily activities, such as making the bed, without having to stop and catch his breath which is new for him. He also reports a generalized feeling of malaise and feeling worn out and states that his symptoms are similar to when he developed pneumonia in the past. He however denies any productive cough, fever, chills, chest pain, nausea, vomiting, or diarrhea. Patient is on 2 L at night for his underlying COPD. He does not use oxygen during the day. He currently lives at home and denies any sick contacts. Past Med Surg Social Fam HX - Past Medical History Medical history: arthritis, atrial fibrillation, cancer, CHF, COPD, hyperlipidemia, hypertension, malignancy, osteoporosis, pulmonary embolus, venous stasis, other Additional medical history: breast cancer Psychiatric history: no psych history - Past Surgical History Surgical History: breast surgery Additional surgical history: Cardiac Ablaison - Social History Smoking Status: Former smoker Alcohol use: occasionally Drug use: none - Family History Mother Hx Family Neurologic Disorders: Yes (CVA) Father Living Status: Hx Family Cardiac Disorders: Yes (father,mother) Hx Family Respiratory Disorders: Yes (brother) Hx Family Cancer: Yes (self, brothers) Hx Family GI Disorders: No Hx Family Endocrine Disorder: No Hx Family Neuromuscular Disorders: No Hx Family Neurologic Disorders: Yes (mother) Hx Family HEENT Disorders: No Hx Family Autoimmune Disorders: No Internal Medicine - H&P: Meds Aclidinium [place] [Tudorza Pressair] 1 puff IH BID 05/29/17 [History] Albuterol Sulfate [Proair Hfa] 2 puff IH Q6H PRN 05/29/17 [History] Apixaban [Eliquis] 5 mg PO BID 05/29/17 [History] Budesonide/Formoterol 160/4.5 [Symbicort 160/4.5] 2 puff IH BIDR 05/29/17 [ History] Carvedilol [Coreg] 25 mg PO BID 05/29/17 [History] Furosemide [Lasix] 20 mg PO Q48H 05/29/17 [History] HYDROcodone/Acet 10/325 mg [[place] 10-325 mg] 1 tab PO TID PRN 05/29/17 [History] Losartan Potassium [Cozaar] 100 mg PO DAILY 05/29/17 [History] Potassium Chloride [K-Tab ER] 20 meq PO Q48H 05/29/17 [History] Pravastatin Sodium [Pravachol] 40 mg PO DAILY 05/29/17 [History] Multivit-Min/FA/Lycopen/Lutein [Centrum Silver Men Tablet] 1 tab PO DAILY [History] 3 Allergy/AdvReac Type Severity Reaction Status Date / Time doxycycline Allergy Rash Verified 05/29/17 10:14 All Systems PM: A 10-system review of systems was performed and is negative for pertinent findings except as documented above in the HPI. - Constitutional Constitutional: no chills, no fever(s), no night sweats - EENT Eyes: no change in vision, no discharge, no pain, no photophobia Ears: no ear discharge, no ear pain, no tinnitus Nose, mouth and throat: no dysphagia, no nasal discharge, no neck pain, no sore throat - Cardiovascular Cardiovascular ROS IM: no chest pain, no diaphoresis, no dyspnea, no lightheadedness, no palpitations, no syncope - Respiratory Respiratory: no cough, no dyspnea, no wheezing, no excessive phlegm production - Gastrointestinal Gastrointestinal: no abdominal pain, no diarrhea, no hematemesis, no hematochezia, no melena, no nausea, no vomiting - Musculoskeletal Musculoskeletal ROS IM: no numbness, no tingling - Integumentary Integumentary IM: no rash, no unusual bruising - Neurological Neurological ROS: no confusion, no convulsions, no focal weakness, no numbness, no tingling, no tremor(s) - Hematologic/Lymphatic Hematologic/Lymphatic: no easy bruising - Constitutional Vitals: Temp Pulse Resp BP Pulse Ox 97.5 F L 92 20 103/69 95 02/25/18 23:15 02/25/18 23:15 02/25/18 23:37 02/25/18 23:15 02/25/18 23:37 Exam: General: Alert and oriented 3. Lying in bed in no acute distress Skin:Normal color, no rash, no lesions. HEENT:EOM, pupils equal, round and reactive. Cardiovascular: Irregularly irregular rhythm with distant heart sounds; no rubs , murmurs or gallops. No JVD. Pulse regular. Lungs: Bilateral wheezing appreciated on expiration, no crackles. Abdomen:Soft, non-tender, no rigidity. Extremities:No deformity, no edema or tenderness, no joint swelling or clubbing. Neurological:Normal cognition and motor skills. Pulses:Carotid and radial pulses normal +2. Rest of the physical exam is non contributory Internal Med - H&P Results - Labs CBC & Chem 7: 02/26/18 04:46 02/26/18 04:46 - Assessment and plan (1) COPD with exacerbation Current Visit: Yes Status: Acute Assessment and plan: Dyspnea on upon exertion likely secondary to mild COPD exacerbation possibly secondary to healthcare associated pneumonia evidenced by wheezing on lung exam and left base infiltrate. Patient recently had pulmonary function testing which showed severe obstruction. At this time patient appears stable from a respiratory standpoint but does have faint wheezing on physical exam. Continue with DuoNeb's. Steroids. Antibiotics. Patient currently states that he is feeling better since receiving treatment in the ED. (2) HCAP (healthcare-associated pneumonia) Current Visit: Yes Status: Acute Assessment and plan: Chest x-ray finding shows left base mild patchy opacity suggestive of pneumonia. Given reports hospitalization within the last 90 days, will start patient on broad-spectrum antibiotics for possible healthcare associated pneumonia. Continue supportive care with oxygen and fluids. Follow cultures: Bld, Sputum, Legionela/Strep urine Ag. (3) Atrial fibrillation Current Visit: Yes Status: Acute Assessment and plan: History of atrial fibrillation. Currently on Eliquis. We will continue home medications. Qualifiers: Qualified Code(s): I48.91 - Unspecified atrial fibrillation (4) Congestive heart failure with left ventricular diastolic dysfunction Current Visit: Yes Status: Acute Assessment and plan: No evidence of volume overload. Continue with home meds. Qualifiers: Congestive heart failure chronicity: chronic Qualified Code(s): I50.32 - Chronic diastolic (congestive) heart failure - Time Spent With Patient Total time spent is greater than 50% in coordination of care (as documented) at patient's floor/unit and/or counseling patient:
[2018-02-26] MEDS ORDERED: Furosemide 20 MG TABLET PO SCH (02:00)
[2018-02-26] MEDS: Ipratropium/Albuterol Neb 3 ML IH SCH ×6 (04:09→23:09)
[2018-02-26] MEDS: Piperacillin/Tazobactam 3.375 GM in 0.9 % Sodium Chloride Mini Bag 100 ML IVPB SCH ×3 (04:09→20:47)
[2018-02-26 05:14] LABS: Red Cell Distribution Width 13.2 % (11.5-14.5)
[2018-02-26 05:16] LABS: Hematocrit 38.2 % (37.5-50.1); Hemoglobin 12.8 g/dL (12.9-16.9); Immature Platelets 4.7 % (1.1-6.1); Mean Corpuscular HGB Conc 33.5 g/dL (31.6-35.5); Mean Corpuscular Hemoglobin 33.6 pg (28.0-33.3); Mean Corpuscular Volume 100.3 fL (83.0-100.0); Mean Platelet Volume 10.2 fL (9.4-12.4); Red Blood Count 3.81 M/mcL (4.19-5.50)
[2018-02-26 05:36] LABS: Alanine Aminotransferase 10 Units/L (7-52); Albumin 3.3 g/dL (3.5-5.7); Albumin/Globulin Ratio 1.2 (1.1-2.2); Alkaline Phosphatase 53 Units/L (34-104); Aspartate Amino Transferase 13 Units/L (13-39); BUN/Creatinine Ratio 30 (6-26); Bilirubin,Total 0.7 mg/dL (0.3-1.0); Blood Urea Nitrogen 24 mg/dL (8-23); Calcium 8.3 mg/dL (8.6-10.3); Carbon Dioxide 26 mEq/L (23-29); Chloride 107 mEq/L (98-107); Globulin 2.7 g/dL (2.4-3.5); Glucose 204 mg/dL (70-105); Osmolality,Calculated 296 (280-300); Potassium 4.3 mEq/L (3.5-5.1); Sodium 138 mEq/L (136-145); eGFR For Non-African Americans > 60 (> 60)
[2018-02-26] MEDS ORDERED: *HR* HYDROcodone/Acet 10/325 mg TABLET PO PRN (08:50)
[2018-02-26] MEDS ORDERED: *HR* HYDROcodone/Acet 10/325 mg TABLET PO SCH ×2 (09:00→21:00)
[2018-02-26] MEDS: Apixaban 5 MG TABLET PO SCH ×2 (09:39→20:46)
[2018-02-26] MEDS: Multivit/Ca/Min/Fe/FA 1 TAB TABLET PO SCH (09:39)
[2018-02-26] MEDS: 0.9 % Sodium Chloride 1,000 ML IVC SCH (10:27)
[2018-02-26] MEDS ORDERED: Menthol 9.1 MG LOZENGE PO PRN (15:57)
[2018-02-26] MEDS: *HR* HYDROcodone/Acet 10/325 mg TABLET PO SCH (19:02)
--- NOTE | 2018-02-26 19:26 | Internal Med Progress Note ---
Hospitalist Progress Note - Encounter Date of Encounter: 02/26/18 Time of Encounter: 11:00 - Subjective Interval History: Patient presented with shortness of breath found to have COPD exacerbation secondary to healthcare acquired pneumonia - Exam Vitals: Temp Pulse Resp BP Pulse Ox 98.2 F 99 16 116/71 97 02/26/18 16:58 02/26/18 16:58 02/26/18 16:58 02/26/18 16:58 02/26/18 16:58 Exam: Gen.: Nonacute distress, alert and oriented 3 ENT: Mucosal membranes moist Respiratory: Lungs are clear to auscultation bilaterally without any wheezing rhonchi or rales Cardiovascular: Normal S1 and S2 regular rate rhythm no murmurs rubs or gallops Abdomen: Soft, nontender and nondistended with positive bowel sounds Extremities: No lower extremity edema Skin: Normal color - Assessment and Plan (1) HCAP (healthcare-associated pneumonia) Current Visit: Yes Status: Acute Assessment and Plan: Chest x-ray finding shows left base mild patchy opacity suggestive of pneumonia. Follow cultures: Bld, Sputum, Legionela/Strep urine Ag. Will continue IV vancomycin and IV Zosyn. (2) COPD with exacerbation Current Visit: Yes Status: Acute Assessment and Plan: Will de-escalate IV Solu-Medrol from every 6 hours to twice daily and continue scheduled DuoNeb's (3) Atrial fibrillation Current Visit: Yes Status: Acute Assessment and Plan: Continue carvedilol and anticoagulation with Eliquis. (4) Congestive heart failure with left ventricular diastolic dysfunction Current Visit: Yes Status: Acute Assessment and Plan: No evidence of volume overload. Continue oral Lasix every 48 hours DVT Prophylaxis: On Eliquis as above - Time Spent with Patient Total time spent is greater than 50% in coordination of care (as documented) at patient's floor/unit and/or counseling patient: Internal Medicine: Result - Labs CBC & Chem 7: 02/26/18 04:46 02/26/18 04:46 Labs: Short CBC 02/26/18 Range/Units 04:46 WBC 6.1 (4.3-11.1) K/mcL Hgb 12.8 L D (12.9-16.9) g/dL Hct 38.2 (37.5-50.1) % Plt Count 81 L (140-400) K/mcL BMP 02/26/18 04:46 Sodium 138 Potassium 4.3 Chloride 107 Carbon Dioxide 26 BUN 24 H Creatinine 0.80 Glucose 204 H Calcium 8.3 L Liver Function 02/26/18 Range/Units 04:46 Total Bilirubin 0.7 (0.3-1.0) mg/dL AST 13 (13-39) Units/L ALT 10 (7-52) Units/L Alkaline Phosphatase 53 (34-104) Units/L Albumin 3.3 L (3.5-5.7) g/dL - ABG Interpretation ABG results: PT/INR, D-dimer PT 20.7 Seconds (9.4-12.1) H 02/25/18 18:00 D-Dimer 232 ng/mLFEU (0-500) 02/25/18 18:00 Consult Discharge Plan - Plan Referrals: Francisca Anderson MD [Primary Care Provider] - (3) Atrial fibrillation Qualifiers: Qualified Code(s): I48.91 - Unspecified atrial fibrillation (4) Congestive heart failure with left ventricular diastolic dysfunction Qualifiers: Congestive heart failure chronicity: chronic Qualified Code(s): I50.32 - Chronic diastolic (congestive) heart failure
[2018-02-27] MEDS: Ipratropium/Albuterol Neb 3 ML IH SCH ×6 (03:34→23:43)
[2018-02-27] MEDS: Piperacillin/Tazobactam 3.375 GM in 0.9 % Sodium Chloride Mini Bag 100 ML IVPB SCH ×3 (05:14→19:33)
[2018-02-27] MEDS: MethylPREDNISolone 40 MG/ML VIAL IVP SCH (05:15)
[2018-02-27] MEDS: *HR* HYDROcodone/Acet 10/325 mg TABLET PO SCH ×2 (07:14→19:34)
[2018-02-27] MEDS ORDERED: Furosemide 20 MG TABLET PO SCH (09:00)
[2018-02-27] MEDS: Apixaban 5 MG TABLET PO SCH ×2 (09:00→19:35)
[2018-02-27] MEDS ORDERED: *HR* HYDROcodone/Acet 10/325 mg TABLET PO SCH (09:00)
[2018-02-27] MEDS: Multivit/Ca/Min/Fe/FA 1 TAB TABLET PO SCH (09:01)
--- NOTE | 2018-02-27 09:14 | Internal Med Progress Note ---
Hospitalist Progress Note - Encounter Date of Encounter: 02/27/18 Time of Encounter: 11:00 - Subjective Interval History: Patient presented with shortness of breath found to have COPD exacerbation secondary to healthcare acquired pneumonia Patient continues to be afebrile without leukocytosis Patient this morning has been weaned off supplemental oxygenation and is satting in the upper 90s on room air - Exam Vitals: Temp Pulse Resp BP Pulse Ox 97.7 F 90 17 129/79 97 02/27/18 07:17 02/27/18 07:17 02/27/18 07:17 02/27/18 07:17 02/27/18 07:17 Exam: Gen.: Nonacute distress, alert and oriented 3 ENT: Mucosal membranes moist Respiratory: Lungs are clear to auscultation bilaterally without any wheezing rhonchi or rales Cardiovascular: Normal S1 and S2 regular rate rhythm no murmurs rubs or gallops Abdomen: Soft, nontender and nondistended with positive bowel sounds Extremities: No lower extremity edema Skin: Normal color - Assessment and Plan (1) HCAP (healthcare-associated pneumonia) Current Visit: Yes Status: Acute Assessment and Plan: Chest x-ray finding shows left base mild patchy opacity suggestive of pneumonia. Sputum, Legionela/Strep urine Ag are negative Will continue Day 2 of IV vancomycin and IV Zosyn. (2) COPD with exacerbation Current Visit: Yes Status: Acute Assessment and Plan: Will de-escalate IV Solu-Medrol to oral prednisone (3) Atrial fibrillation Current Visit: Yes Status: Acute Assessment and Plan: Rate controlled; continue carvedilol and anticoagulation with Eliquis. (4) Congestive heart failure with left ventricular diastolic dysfunction Current Visit: Yes Status: Acute Assessment and Plan: No evidence of volume overload. Continue oral Lasix every 48 hours DVT Prophylaxis: On Eliquis as above - Time Spent with Patient Total time spent is greater than 50% in coordination of care (as documented) at patient's floor/unit and/or counseling patient: Internal Medicine: Result - Labs CBC & Chem 7: 02/27/18 09:15 02/27/18 09:15 - ABG Interpretation ABG results: PT/INR, D-dimer PT 20.7 Seconds (9.4-12.1) H 02/25/18 18:00 D-Dimer 232 ng/mLFEU (0-500) 02/25/18 18:00 Consult Discharge Plan - Plan Referrals: Francisca Anderson MD [Primary Care Provider] - (4) Congestive heart failure with left ventricular diastolic dysfunction Qualifiers: Congestive heart failure chronicity: chronic Qualified Code(s): I50.32 - Chronic diastolic (congestive) heart failure
[2018-02-27 09:36] LABS: Basophils % 0.1 %; Eosinophils % 0.2 %; Hematocrit 40.4 % (37.5-50.1); Lymphocytes # 0.6 K/mcL (0.6-4.6); Lymphocytes % 7.1 %; Mean Corpuscular HGB Conc 32.2 g/dL (31.6-35.5); Mean Corpuscular Hemoglobin 32.9 pg (28.0-33.3); Mean Corpuscular Volume 102.3 fL (83.0-100.0); Mean Platelet Volume 10.1 fL (9.4-12.4); Monocytes # 0.3 K/mcL (0.0-1.3); Monocytes % 3.6 %; Neutrophils # 7.5 K/mcL (1.6-8.9); Red Blood Count 3.95 M/mcL (4.19-5.50); Red Cell Distribution Width 13.2 % (11.5-14.5)
[2018-02-27 09:37] LABS: Platelet Count 91 K/mcL (140-400)
[2018-02-27 09:53] LABS: BUN/Creatinine Ratio 24 (6-26); Blood Urea Nitrogen 24 mg/dL (8-23); Calcium 8.5 mg/dL (8.6-10.3); Carbon Dioxide 22 mEq/L (23-29); Chloride 110 mEq/L (98-107); Glucose 176 mg/dL (70-105); Osmolality,Calculated 298 (280-300); Potassium 3.8 mEq/L (3.5-5.1); Sodium 140 mEq/L (136-145); eGFR For Non-African Americans > 60 (> 60)
[2018-02-27] MEDS: predniSONE 20 MG TABLET PO SCH (16:31)
[2018-02-28] MEDS: Ipratropium/Albuterol Neb 3 ML IH SCH ×3 (03:10→11:13)
[2018-02-28] MEDS: Piperacillin/Tazobactam 3.375 GM in 0.9 % Sodium Chloride Mini Bag 100 ML IVPB SCH (03:20)
[2018-02-28 05:07] LABS: Basophils % 0.3 %; Eosinophils % 0.1 %; Mean Platelet Volume 9.9 fL (9.4-12.4); Red Blood Count 3.81 M/mcL (4.19-5.50); Red Cell Distribution Width 13.1 % (11.5-14.5)
[2018-02-28 05:09] LABS: Hematocrit 37.9 % (37.5-50.1); Hemoglobin 12.7 g/dL (12.9-16.9); Immature Granulocytes % 4.1 % (0-4); Immature Platelets 4.4 % (1.1-6.1); Lymphocytes # 0.5 K/mcL (0.6-4.6); Lymphocytes % 7.7 %; Mean Corpuscular HGB Conc 33.5 g/dL (31.6-35.5); Mean Corpuscular Hemoglobin 33.3 pg (28.0-33.3); Mean Corpuscular Volume 99.5 fL (83.0-100.0); Monocytes # 0.4 K/mcL (0.0-1.3); Monocytes % 5.3 %; Neutrophils # 5.8 K/mcL (1.6-8.9); Segmented Neutrophils % 82.5 %
[2018-02-28 05:10] LABS: Platelet Count 95 K/mcL (140-400)
[2018-02-28 05:30] LABS: BUN/Creatinine Ratio 28 (6-26); Blood Urea Nitrogen 27 mg/dL (8-23); Calcium 8.5 mg/dL (8.6-10.3); Carbon Dioxide 26 mEq/L (23-29); Chloride 110 mEq/L (98-107); Glucose 146 mg/dL (70-105); Osmolality,Calculated 302 (280-300); Potassium 3.7 mEq/L (3.5-5.1); Sodium 142 mEq/L (136-145); eGFR For Non-African Americans > 60 (> 60)
[2018-02-28] MEDS: Apixaban 5 MG TABLET PO SCH (07:41)
[2018-02-28] MEDS: Multivit/Ca/Min/Fe/FA 1 TAB TABLET PO SCH ×2 (07:41→07:42)
[2018-02-28] MEDS: predniSONE 20 MG TABLET PO SCH (07:42)
[2018-02-28] MEDS: *HR* HYDROcodone/Acet 10/325 mg TABLET PO SCH (07:43)
[2018-02-28 11:16] VITALS: BP 149/91
--- NOTE | 2018-02-28 11:38 | Discharge Summary ---
- NOTES TO OUTPATIENT PROVIDER Notes to Outpatient Provider: none Orders not resulted at time of discharge: Pending orders 03/01/18 04:00 Basic Metabolic Panel AM 0400 Complete Blood Count [HEME] AM 0400 03/02/18 04:00 Basic Metabolic Panel AM 0400 Complete Blood Count [HEME] AM 0400 Date of Encounter: 02/28/18 Time of Encounter: 11:00 - Discharge Diagnosis (1) HCAP (healthcare-associated pneumonia) Priority: Primary Status: Acute (2) COPD with exacerbation Priority: Primary Status: Acute (3) Atrial fibrillation Priority: Secondary Status: Acute Qualifiers: Atrial fibrillation type: unspecified Qualified Code(s): I48.91 - Unspecified atrial fibrillation (4) Congestive heart failure with left ventricular diastolic dysfunction Priority: Secondary Status: Acute Qualifiers: Congestive heart failure chronicity: chronic Qualified Code(s): I50.32 - Chronic diastolic (congestive) heart failure Hospital course: Patient is a 77-year-old male with past medical history significant for COPD, CHF, hypertension atrial fibrillation status post ablation who presents with worsening dyspnea upon exertion for the past 3 days. Patient reports feeling short of breath with exertion which began on Friday. He states that he is unable to go about his usual daily activities, such as making the bed, without having to stop and catch his breath which is new for him. He also reports a generalized feeling of malaise and feeling worn out and states that his symptoms are similar to when he developed pneumonia in the past. He however denies any productive cough, fever, chills, chest pain, nausea, vomiting, or diarrhea. Patient is on 2 L at night for his underlying COPD. He does not use oxygen during the day. He currently lives at home and denies any sick contacts. In the ER, patient was found to have mild patchy opacities in the left lung base suggestive of pneumonia on chest x-ray. Patient was admitted to the medical surgical floor for treatment of healthcare acquired pneumonia with COPD exacerbation. During patients hospital stay, he was afebrile without leukocytosis. Patient s oxygen supplementation was also weaned down to baseline. Patient will be discharged to follow up with primary care provider. - Time Spent with Patient Total time spent providing and/or coordinating discharge services: Less than 30 minutes - Discharge Medications Prescriptions: levoFLOXacin [Levaquin] 750 mg PO DAILY 5 Days #5 tablet predniSONE [PredniSONE] 40 mg PO DAILY 5 Days #10 tablet Home Medications: Aclidinium [place] [[place]udorza Pressair] 1 puff IH BID 05/29/17 [History] Albuterol Sulfate [Proair Hfa] 2 puff IH Q6H PRN 05/29/17 [History] Apixaban [Eliquis] 5 mg PO BID 05/29/17 [History] Budesonide/Formoterol 160/4.5 [Symbicort 160/4.5] 2 puff IH BIDR 05/29/17 [ History] Carvedilol [Coreg] 25 mg PO BID 05/29/17 [History] Furosemide [Lasix] 20 mg PO Q48H 05/29/17 [History] HYDROcodone/Acet 10/325 mg [[place] 10-325 mg] 1 tab PO TID PRN 05/29/17 [History] Losartan Potassium [Cozaar] 100 mg PO DAILY 05/29/17 [History] Potassium Chloride [K-Tab ER] 20 meq PO Q48H 05/29/17 [History] Pravastatin Sodium [Pravachol] 40 mg PO DAILY 05/29/17 [History] Multivit-Min/FA/Lycopen/Lutein [Centrum Silver Men Tablet] 1 tab PO DAILY [History] levoFLOXacin [Levaquin] 750 mg PO DAILY 5 Days #5 tablet 02/28/18 [Rx] predniSONE [PredniSONE] 40 mg PO DAILY 5 Days #10 tablet 02/28/18 [Rx] Allergies/Adverse Reactions: 3 Allergy/AdvReac Type Severity Reaction Status Date / Time doxycycline Allergy Rash Verified 05/29/17 10:14 Date of admission: 02/25/18 21:35 Primary care physician: Francisca Anderson MD - Constitutional Vitals: Temp Pulse Resp BP Pulse Ox 98.3 F 88 18 149/91 95 02/28/18 11:16 02/28/18 11:16 02/28/18 11:16 02/28/18 11:16 02/28/18 11:16 General appearance: Present: no acute distress Exam: See below - Respiratory Respiratory exam: Present: CTAB. Absent: accessory muscle use, rales, rhonchi, wheezes - Patient Status Disposition: Home, Self-Care Condition: Good - Discharge Instructions Instructions: Prednisone (By mouth), Levofloxacin (By mouth), Heart Failure (DC ) Follow Up With: Francisca Anderson MD [Primary Care Provider] - (web requested 02/28/2018)
[2018-02-28] MEDS ORDERED: Aminoglycoside Consult 1 EACH MC ONE (12:33)
--- NOTE | 2018-03-02 13:30 | Electrocardiograph Report ---
[place] [id number] Test Date: 2018-02-25 Pat Name: Vernon Stover Department: 106 Room: 2A Gender: M Dryerman/Woman: : 1940 Requested By: Kaitlin Dubois Order Number: [id number] Reading MD: Delfino Stephens Measurements Intervals [place] Rate: 97 P: [place]: 0 QRS: 58 QRSD: 84 T: 67 QT: 321 QTc: 375 Interpretive Statements ATRIAL FIBRILLATION WITH ABERRANT CONDUCTION OR VENTRICULAR PREMATURE COMPLEXES LOW QRS VOLTAGE IN EXTREMITY LEADS Electronically Signed On 03-02-2018 13:28:48 EDT by Delfino Stephens
== END 2018-02-28 12:34 | disposition home or self-care (01) | DRG 190 ==
LOC: EMEROOARM 17:39 → 2ANU 21:35 → SUATTDRO 21:35 → 2ANU 22:10
PROVIDERS: ADMIT Internal Medicine; ATTEND Hospitalist

== ENCOUNTER 2018-04-11 10:03 | Inpatient (IN) ==
--- NOTE | 2018-04-11 10:10 | Emergency Department Note ---
Disposition Clinical Impression: Pneumonia Disposition: Admitted As Inpatient Condition: Good General Adult HPI - General Chief complaint: ED Shortness of Breath/Dyspnea Stated complaint: RUPA/Dizzy Time Seen by Provider: 04/11/18 10:08 - History of Present Illness Pain Scale: 5 - Related Data Home Medications Medication Instructions Recorded Confirmed Aclidinium [place] [Tudorza 1 puff IH BID 05/29/17 02/25/18 Pressair] Albuterol Sulfate [Proair Hfa] 2 puff IH Q6H PRN 05/29/17 02/25/18 Apixaban [Eliquis] 5 mg PO BID 05/29/17 02/25/18 Budesonide/Formoterol 160/4.5 2 puff IH BIDR 05/29/17 02/25/18 [Symbicort 160/4.5] Carvedilol [Coreg] 25 mg PO BID 05/29/17 02/25/18 Furosemide [Lasix] 20 mg PO Q48H 05/29/17 02/25/18 HYDROcodone/Acet 10/325 mg [[place] 1 tab PO TID PRN 05/29/17 02/25/18 10-325 mg] Losartan Potassium [Cozaar] 100 mg PO DAILY 05/29/17 02/25/18 Potassium Chloride [K-Tab ER] 20 meq PO Q48H 05/29/17 02/25/18 Pravastatin Sodium [Pravachol] 40 mg PO DAILY 05/29/17 02/25/18 Multivit-Min/FA/Lycopen/Lutein 1 tab PO DAILY 11/06/17 02/25/18 [Centrum Silver Men Tablet] Previous Rx's Medication Instructions Recorded levoFLOXacin [Levaquin] 750 mg PO DAILY 5 Days #5 tablet 02/28/18 predniSONE [PredniSONE] 40 mg PO DAILY 5 Days #10 tablet 02/28/18 Allergies Allergy/AdvReac Type Severity Reaction Status Date / Time doxycycline Allergy Rash Verified 05/29/17 10:14 Past Medical History - Past Medical History Medical history: Reports: arthritis, atrial fibrillation, cancer, CHF, COPD, hyperlipidemia, hypertension, malignancy, osteoporosis, pulmonary embolus, venous stasis, other Surgical history: Reports: breast surgery Psychiatric history: Reports: no psych history - Social History Smoking Status: Former smoker Alcohol use: Reports: occasionally Drug use: Reports: none Course Vital Signs Temperature 97.6 F 10/13/18 10:05 Pulse Rate 112 04/11/18 10:05 Respiratory Rate 22 04/11/18 10:05 Blood Pressure 95/61 04/11/18 10:05 O2 Sat by Pulse Oximetry 98 04/11/18 10:05 Temperature 97.6 F 04/11/18 10:29 Pulse Rate 106 04/11/18 12:31 Respiratory Rate 20 04/11/18 12:31 Blood Pressure 97/65 04/11/18 12:31 O2 Sat by Pulse Oximetry 96 04/11/18 12:31 Oxygen Delivery Oxygen Delivery Nasal Cannula Medical Decision Making - Lab Data Result diagrams: 04/11/18 10:39 04/11/18 10:39 Lab Results 04/11/18 04/11/18 04/11/18 Range/Units 10:39 10:39 10:39 WBC 9.6 (4.3-11.1) K/mcL RBC 3.91 L (4.19-5.50) M/mcL Hgb 12.5 L (12.9-16.9) g/dL Hct 39.5 (37.5-50.1) % MCV 101.0 H (83.0-100.0) fL MCH 32.0 (28.0-33.3) pg MCHC 31.6 (31.6-35.5) g/dL RDW 13.4 (11.5-14.5) % Plt Count 141 (140-400) K/mcL MPV 9.5 (9.4-12.4) fL Immature Gran % 4.0 (0-4) % Seg Neutrophils % 70.9 % Lymphocytes % 9.2 % Monocytes % 15.6 % Eosinophils % 0.1 % Basophils % 0.2 % Neutrophils # 6.8 (1.6-8.9) K/mcL Lymphocytes # 0.9 (0.6-4.6) K/mcL Monocytes # 1.5 H (0.0-1.3) K/mcL Eosinophils # 0.0 (0.0-0.6) K/mcL Basophils # 0.0 (0.0-0.2) K/mcL Sodium 138 (136-145) mEq/L Potassium 3.9 (3.5-5.1) mEq/L Chloride 101 (98-107) mEq/L Carbon Dioxide 29 (23-29) mEq/L BUN 17 (8-23) mg/dL Creatinine 1.09 (0.70-1.30) mg/dL Est GFR ( Amer) > 60 (> 60) Est GFR (Non-Af Amer) > 60 (> 60) BUN/Creatinine Ratio 16 (6-26) Glucose 129 H (70-105) mg/dL Calculated Osmolality 289 (280-300) Lactic Acid (0.5-2.2) mmol/L Calcium 9.0 (8.6-10.3) mg/dL Troponin I < 0.03 (< 0.04) ng/mL B-Natriuretic Peptide 272 H (Less than 100) pg/mL Ur Specimen Adequacy Urine Color (Yellow) Urine Clarity (Clear) Urine pH (5.0-8.0) pH Units Ur Specific [place] (1.010-1.025) Urine Protein (Neg-Trace) mg/dL Urine Glucose (UA) (Normal) mg/dL Urine Ketones (Negative) mg/dL Urine Blood (Negative) Urine Nitrite (Negative) Urine Bilirubin (Negative) Urine Urobilinogen (Normal) mg/dL Ur Leukocyte Esterase (Negative) Urine Microscopic RBC (0-3) per hpf Urine Microscopic WBC (0-3) per hpf Ur Squamous Epith Cells (None-Few) per lpf Urine Bacteria (None-Few) per hpf Hyaline Casts Ur Culture Indicated? (NO) 04/11/18 04/11/18 Range/Units 10:39 11:05 WBC (4.3-11.1) K/mcL RBC (4.19-5.50) M/mcL Hgb (12.9-16.9) g/dL Hct (37.5-50.1) % MCV (83.0-100.0) fL MCH (28.0-33.3) pg MCHC (31.6-35.5) g/dL RDW (11.5-14.5) % Plt Count (140-400) K/mcL MPV (9.4-12.4) fL Immature Gran % (0-4) % Seg Neutrophils % % Lymphocytes % % Monocytes % % Eosinophils % % Basophils % % Neutrophils # (1.6-8.9) K/mcL Lymphocytes # (0.6-4.6) K/mcL Monocytes # (0.0-1.3) K/mcL Eosinophils # (0.0-0.6) K/mcL Basophils # (0.0-0.2) K/mcL Sodium (136-145) mEq/L Potassium (3.5-5.1) mEq/L Chloride (98-107) mEq/L Carbon Dioxide (23-29) mEq/L BUN (8-23) mg/dL Creatinine (0.70-1.30) mg/dL Est GFR ( Amer) (> 60) Est GFR (Non-Af Amer) (> 60) BUN/Creatinine Ratio (6-26) Glucose (70-105) mg/dL Calculated Osmolality (280-300) Lactic Acid 2.0 (0.5-2.2) mmol/L Calcium (8.6-10.3) mg/dL Troponin I (< 0.04) ng/mL B-Natriuretic Peptide (Less than 100) pg/mL Ur Specimen Adequacy See below A Urine Color Dark Yellow (Yellow) Urine Clarity Clear (Clear) Urine pH 6.5 (5.0-8.0) pH Units Ur Specific [place] 1.030 H (1.010-1.025) Urine Protein 100 H (Neg-Trace) mg/dL Urine Glucose (UA) Normal (Normal) mg/dL Urine Ketones Trace H (Negative) mg/dL Urine Blood Negative (Negative) Urine Nitrite Negative (Negative) Urine Bilirubin Small H (Negative) Urine Urobilinogen 2.0 H (Normal) mg/dL Ur Leukocyte Esterase Trace H (Negative) Urine Microscopic RBC 5-15 H (0-3) per hpf Urine Microscopic WBC 3-5 H (0-3) per hpf Ur Squamous Epith Cells Many H (None-Few) per lpf Urine Bacteria None Seen (None-Few) per hpf Hyaline Casts Test Not Performed Ur Culture Indicated? NO. A (NO) Attestation Statement - Attestation Attestation: I examined this patient and my medical decision-making was reviewed with the Resident Physician. I agree with the documented findings, disposition and treatment plan as described except to the extent set forth below. [id number] time provided Patient has a known history of oxygen-dependent COPD who presents to the emergency department with increasing dyspnea. He does not appear in any acute cardiopulmonary distress upon arrival.
[2018-04-11] MEDS ORDERED: Isovue-370 500 ML INFUS..BTL IV ONE (10:48)
[2018-04-11] MEDS ORDERED: 0.9 % Sodium Chloride 500 ML IVC ONE ×2 (10:48→12:10)
--- NOTE | 2018-04-11 10:52 | Emergency Department Note ---
Disposition Clinical Impression: Pneumonia Qualifiers: Pneumonia type: due to unspecified organism Laterality: unspecified laterality Lung location: unspecified part of lung Qualified Code(s): J18.9 - Pneumonia, unspecified organism Disposition: Admitted As Inpatient Condition: Good SOB HPI - General Chief Complaint: ED Shortness of Breath/Dyspnea Stated Complaint: RUPA/Dizzy Time Seen by Provider: 04/11/18 10:08 Source: patient Mode of arrival: private vehicle Limitations: no limitations Nursing Notes Reviewed: Yes Vital Signs Reviewed: Yes - History of Present Illness 77-year-old male history of CHF, COPD, atrial fibrillation on anticoagulation who presents to the ER with a complaint of worsening shortness of breath. States he has been short of breath for the last 6 months however over the last week he has felt considerably worse. 2 weeks ago he started wearing oxygen at home for worsening exertional symptoms. He follows with pulmonology who placed him on theophylline at the beginning of this week. He states that he can no longer walk any amount of distance without being in critical short of breath. Reports chest pain intermittent. No fevers. No nausea vomiting or diarrhea. No abdominal pain. Reports lack of appetite over the last 4 days. Pt Subjective Complaint: shortness of breath Onset (ago): week(s) Context: recent illness Severity: moderate Consistency/Duration: intermittent Improves with: rest Worsens with: exertion Known history of: COPD, congestive heart failure Associated symptoms: Reports: chest pain, cough. Denies: fever, nausea/vomiting , abdominal pain Treatment prior to arrival: oxygen Cough present: Yes Cough Description: Involuntary Cough Frequency: Intermittent Sputum Amount: None - Related Data Home oxygen amount: 2 liters Home Medications Medication Instructions Recorded Confirmed Aclidinium Jbphh [Tudorza 1 puff IH BID 05/29/17 02/25/18 Pressair] Albuterol Sulfate [Proair Hfa] 2 puff IH Q6H PRN 05/29/17 02/25/18 Apixaban [Eliquis] 5 mg PO BID 05/29/17 02/25/18 Budesonide/Formoterol 160/4.5 2 puff IH BIDR 05/29/17 02/25/18 [Symbicort 160/4.5] Carvedilol [Coreg] 25 mg PO BID 05/29/17 02/25/18 Furosemide [Lasix] 20 mg PO Q48H 05/29/17 02/25/18 HYDROcodone/Acet 10/325 mg [[place] 1 tab PO TID PRN 05/29/17 02/25/18 10-325 mg] Losartan Potassium [Cozaar] 100 mg PO DAILY 05/29/17 02/25/18 Potassium Chloride [K-Tab ER] 20 meq PO Q48H 05/29/17 02/25/18 Pravastatin Sodium [Pravachol] 40 mg PO DAILY 05/29/17 02/25/18 Multivit-Min/FA/Lycopen/Lutein 1 tab PO DAILY 11/06/17 02/25/18 [Centrum Silver Men Tablet] Previous Rx's Medication Instructions Recorded levoFLOXacin [Levaquin] 750 mg PO DAILY 5 Days #5 tablet 02/28/18 predniSONE [PredniSONE] 40 mg PO DAILY 5 Days #10 tablet 02/28/18 Allergies Allergy/AdvReac Type Severity Reaction Status Date / Time doxycycline Allergy Rash Verified 05/29/17 10:14 All systems ED: reviewed and negative except as stated. Constitutional: Denies: fever Cardiovascular: Reports: chest pain, dyspnea on exertion Respiratory: Reports: cough, dyspnea. Denies: sputum production Gastrointestinal: Denies: abdominal pain, nausea, vomiting, diarrhea Genitourinary: Denies: dysuria, hematuria Past Medical History - Past Medical History Attestation: Yes The following information was validated with the patient. Source: patient Medical history: Reports: arthritis, atrial fibrillation, cancer, CHF, COPD, hyperlipidemia, hypertension, malignancy, osteoporosis, pulmonary embolus, venous stasis, other Surgical history: Reports: breast surgery Psychiatric history: Reports: no psych history - Social History Smoking Status: Former smoker Smokeless Tobacco Status: No Alcohol use: Reports: rarely Drug use: Reports: none Physical Exam - General Limitations: no limitations General appearance: alert, in no apparent distress - Head Head exam: atraumatic, normocephalic - Eye Eye exam: Present: normal appearance - ENT ENT exam: normal exam - Neck Neck exam: Present: normal inspection - Chest Chest inspection: Present: normal inspection, symmetric chest wall rise - Respiratory Respiratory exam: Present: normal lung sounds bilaterally - Cardiovascular Cardiovascular exam: Present: normal rhythm, tachycardia, normal heart sounds - Abdominal Exam Abdominal exam: Present: soft, Non-Tender. Absent: tenderness, distention, rigidity - Extremities Exam Extremities exam: Present: normal inspection, full ROM - Expanded Upper Extremity Exam Shoulder exam: Present: normal inspection, full ROM Arm exam: Present: normal inspection, full ROM Elbow exam: Present: normal inspection, full ROM Forearm/Wrist exam: Present: normal inspection, full ROM Hand exam: Present: normal inspection, full ROM - Expanded Lower Extremity Exam Hip/Pelvis exam: Present: normal inspection, full ROM Upper leg exam: Present: normal inspection, full ROM Knee exam: Present: normal inspection, full ROM Lower leg exam: Present: full ROM, swelling (Bilateral lower extremities), other (There is an extensive skin breakdown to the right lower extremity distal to the knee) Ankle exam: Present: full ROM Foot/toe exam: Present: full ROM Neurovascular/Tendon exam: Absent: motor deficit, sensory deficit - Skin Skin exam: Present: warm, dry Course Course Narrative: Patient seen and examined. Vital signs reviewed. He is noted to be tachycardic , tach With a marginal blood pressure. Plan for an EKG, chest x-ray, labs, lactate and cultures. Also reports a history of pulmonary embolism while on anticoagulation previously. Plan for CT imaging for evaluation of PE as well as subtle pneumonia. - Reevaluation(s) Reevaluation #1: Discussed results of imaging labs with the patient. Agreeable with admission. Plan to start Levaquin for atypical pneumonia Vital Signs Temperature 97.6 F 04/11/18 10:05 Pulse Rate 112 04/11/18 10:05 Respiratory Rate 22 04/11/18 10:05 Blood Pressure 95/61 04/11/18 10:05 O2 Sat by Pulse Oximetry 98 04/11/18 10:05 Temperature 97.6 F 04/11/18 10:29 Pulse Rate 101 04/11/18 13:10 Respiratory Rate 20 04/11/18 13:10 Blood Pressure 105/80 04/11/18 13:10 O2 Sat by Pulse Oximetry 96 04/11/18 13:10 Oxygen Delivery Oxygen Delivery Nasal Cannula Shortness of Breath/Dyspnea - MDM Narrative Medical decision making narrative: 77-year-old male presenting with cough and exertional dyspnea for over a week. Requiring oxygen supplementation for the last 2 weeks. Noted to be mildly tachycardic and tachypneic here with a marginal blood pressure. His workup reveals an atypical lower lobe pneumonia. Labs are grossly unremarkable. Patient given Levaquin and admitted for further workup. - Lab Data Lab results reviewed: Yes I reviewed the patient's lab results. Result diagrams: 04/11/18 10:39 04/11/18 10:39 Lab Results 04/11/18 04/11/18 04/11/18 Range/Units 10:39 10:39 10:39 WBC 9.6 (4.3-11.1) K/mcL RBC 3.91 L (4.19-5.50) M/mcL Hgb 12.5 L (12.9-16.9) g/dL Hct 39.5 (37.5-50.1) % MCV 101.0 H (83.0-100.0) fL MCH 32.0 (28.0-33.3) pg MCHC 31.6 (31.6-35.5) g/dL RDW 13.4 (11.5-14.5) % Plt Count 141 (140-400) K/mcL MPV 9.5 (9.4-12.4) fL Immature Gran % 4.0 (0-4) % Seg Neutrophils % 70.9 % Lymphocytes % 9.2 % Monocytes % 15.6 % Eosinophils % 0.1 % Basophils % 0.2 % Neutrophils # 6.8 (1.6-8.9) K/mcL Lymphocytes # 0.9 (0.6-4.6) K/mcL Monocytes # 1.5 H (0.0-1.3) K/mcL Eosinophils # 0.0 (0.0-0.6) K/mcL Basophils # 0.0 (0.0-0.2) K/mcL Sodium 138 (136-145) mEq/L Potassium 3.9 (3.5-5.1) mEq/L Chloride 101 (98-107) mEq/L Carbon Dioxide 29 (23-29) mEq/L BUN 17 (8-23) mg/dL Creatinine 1.09 (0.70-1.30) mg/dL Est GFR ( Amer) > 60 (> 60) Est GFR (Non-Af Amer) > 60 (> 60) BUN/Creatinine Ratio 16 (6-26) Glucose 129 H (70-105) mg/dL Calculated Osmolality 289 (280-300) Lactic Acid (0.5-2.2) mmol/L Calcium 9.0 (8.6-10.3) mg/dL Troponin I < 0.03 (< 0.04) ng/mL B-Natriuretic Peptide 272 H (Less than 100) pg/mL Ur Specimen Adequacy Urine Color (Yellow) Urine Clarity (Clear) Urine pH (5.0-8.0) pH Units Ur Specific [place] (1.010-1.025) Urine Protein (Neg-Trace) mg/dL Urine Glucose (UA) (Normal) mg/dL Urine Ketones (Negative) mg/dL Urine Blood (Negative) Urine Nitrite (Negative) Urine Bilirubin (Negative) Urine Urobilinogen (Normal) mg/dL Ur Leukocyte Esterase (Negative) Urine Microscopic RBC (0-3) per hpf Urine Microscopic WBC (0-3) per hpf Ur Squamous Epith Cells (None-Few) per lpf Urine Bacteria (None-Few) per hpf Hyaline Casts Ur Culture Indicated? (NO) 04/11/18 04/11/18 Range/Units 10:39 11:05 WBC (4.3-11.1) K/mcL RBC (4.19-5.50) M/mcL Hgb (12.9-16.9) g/dL Hct (37.5-50.1) % MCV (83.0-100.0) fL MCH (28.0-33.3) pg MCHC (31.6-35.5) g/dL RDW (11.5-14.5) % Plt Count (140-400) K/mcL MPV (9.4-12.4) fL Immature Gran % (0-4) % Seg Neutrophils % % Lymphocytes % % Monocytes % % Eosinophils % % Basophils % % Neutrophils # (1.6-8.9) K/mcL Lymphocytes # (0.6-4.6) K/mcL Monocytes # (0.0-1.3) K/mcL Eosinophils # (0.0-0.6) K/mcL Basophils # (0.0-0.2) K/mcL Sodium (136-145) mEq/L Potassium (3.5-5.1) mEq/L Chloride (98-107) mEq/L Carbon Dioxide (23-29) mEq/L BUN (8-23) mg/dL Creatinine (0.70-1.30) mg/dL Est GFR ( Amer) (> 60) Est GFR (Non-Af Amer) (> 60) BUN/Creatinine Ratio (6-26) Glucose (70-105) mg/dL Calculated Osmolality (280-300) Lactic Acid 2.0 (0.5-2.2) mmol/L Calcium (8.6-10.3) mg/dL Troponin I (< 0.04) ng/mL B-Natriuretic Peptide (Less than 100) pg/mL Ur Specimen Adequacy See below A Urine Color Dark Yellow (Yellow) Urine Clarity Clear (Clear) Urine pH 6.5 (5.0-8.0) pH Units Ur Specific [place] 1.030 H (1.010-1.025) Urine Protein 100 H (Neg-Trace) mg/dL Urine Glucose (UA) Normal (Normal) mg/dL Urine Ketones Trace H (Negative) mg/dL Urine Blood Negative (Negative) Urine Nitrite Negative (Negative) Urine Bilirubin Small H (Negative) Urine Urobilinogen 2.0 H (Normal) mg/dL Ur Leukocyte Esterase Trace H (Negative) Urine Microscopic RBC 5-15 H (0-3) per hpf Urine Microscopic WBC 3-5 H (0-3) per hpf Ur Squamous Epith Cells Many H (None-Few) per lpf Urine Bacteria None Seen (None-Few) per hpf Hyaline Casts Test Not Performed Ur Culture Indicated? NO. A (NO) - Radiology Data Radiology results reviewed: Yes I reviewed the patient's radiology results. Chest X-Ray 04/11/18 10:10 IMPRESSION: No acute cardiopulmonary process identified. D/ / Ron Hennessy MD / Ron Hennessy MD Interpreting Provider: Ron Hennessy MD Chest CTA 04/11/18 10:48 IMPRESSION: 1. Negative CT angiogram for acute pulmonary embolism. 2. Patchy subpleural ground-glass nodules within the lower lobe suggesting an atypical infectious process. A follow-up CT of the chest in 2 months is recommended to ensure resolution of this finding. 3. 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 D/ / 04/11/2018 12:00:43 Ron Hennessy MD / [email or web address] Interpreting Provider: Ron Hennessy MD - EKG Data EKG attestation: Yes I reviewed and interpreted this EKG. EKG results narrative: EKG demonstrates atrial fibrillation with rate of 108. Normal axis. Normal intervals. Normal R-wave progression. No gross ST elevations or depressions. No acute ischemic findings. No significant changes from previous EKG dated 02/25. Karlie - Karlie Situation: Demographics, MOA Background: Presenting Complaint, Relevant PMH, Meds, & Allergies Assessment: Vital Signs, Course and respsone to treatment, Exam Concerns, Patient/Family Expectation, Pertinant Lab Results Recommendation: Barrier(s) to disposition, Recommendation based on pending studies, treatments, or consults Karlie Report Given to: Dr. viola Ziegler Repor Time: 12:44
[2018-04-11 10:55] LABS: Basophils % 0.2 %; Eosinophils % 0.1 %; Hematocrit 39.5 % (37.5-50.1); Hemoglobin 12.5 g/dL (12.9-16.9); Lymphocytes # 0.9 K/mcL (0.6-4.6); Lymphocytes % 9.2 %; Mean Corpuscular HGB Conc 31.6 g/dL (31.6-35.5); Mean Platelet Volume 9.5 fL (9.4-12.4); Monocytes # 1.5 K/mcL (0.0-1.3); Monocytes % 15.6 %; Neutrophils # 6.8 K/mcL (1.6-8.9); Platelet Count 141 K/mcL (140-400); Red Blood Count 3.91 M/mcL (4.19-5.50); Red Cell Distribution Width 13.4 % (11.5-14.5); Segmented Neutrophils % 70.9 %
[2018-04-11 11:13] LABS: BUN/Creatinine Ratio 16 (6-26); Blood Urea Nitrogen 17 mg/dL (8-23); Carbon Dioxide 29 mEq/L (23-29); Chloride 101 mEq/L (98-107); Glucose 129 mg/dL (70-105); Osmolality,Calculated 289 (280-300); Potassium 3.9 mEq/L (3.5-5.1); Sodium 138 mEq/L (136-145); eGFR For Non-African Americans > 60 (> 60)
[2018-04-11 11:14] LABS: Troponin I < 0.03 ng/mL (< 0.04)
[2018-04-11 11:16] LABS: Bilirubin,Urine Small (Negative); Blood,Urine Negative (Negative); Clarity,Urine Clear (Clear); Color,Urine Dark Yellow (Yellow); Glucose,Urine (UA) Normal (Normal); Ketones,Urine Trace mg/dL (Negative); Leukocyte Esterase,Urine Trace (Negative); Nitrite,Urine Negative (Negative); PH,Urine 6.5 pH Units (5.0-8.0); Protein,Urine 100 mg/dL (Neg-Trace)
[2018-04-11 11:20] LABS: Bacteria,Urine None Seen per hpf (None-Few); Squamous Epithelial Cell,Urine Many per lpf (None-Few)
[2018-04-11] MEDS ORDERED: Levofloxacin 750 MG/150 ML 750 MG/150 ML BAG IVPB ONE (12:08)
[2018-04-11] MEDS ORDERED: Acetaminophen 325 MG TABLET PO PRN (13:32)
[2018-04-11] MEDS ORDERED: Naloxone 0.4 MG/ML INJ IVP PRN (13:32)
[2018-04-11] MEDS ORDERED: Tdap (Boostrix) Vaccine 0.5 ML SYRINGE IM ONE (13:37)
--- NOTE | 2018-04-11 13:57 | Internal Med History&Physical ---
<Clif Zepeda - Last Filed: 04/11/18 15:11> Date of Encounter: 04/11/18 Time of Encounter: 12:30 Internal Medicine - H&P: HPI Chief complaint: SOB/Dyspnea Admitted From: Emergency Dept Plans for Post Hospital Care: Home History of present illness: Mr. Stover is a 77 year old male w/PMH of arthritis, atrial fibrillation, breast cancer, CHF, COPD, HLD, HTN, osteoporosis, previous pulmonary embolus 5- 6 years ago, but chronic venous stasis presents from the ED with chief complaint of shortness of breath and dyspnea for the past several weeks. Patient reports cough with pain on inspiration for the same time period. Patient also reports weakness since his last admission at the end of January when he was admitted for pneumonia. Patient states he used O2 only at night but after discharge in January is been using oxygen 24/7 at home. Pulmonology started pt. on Kevin 24 last Friday. Pt. also reports decrease in appetite over the past week. Patient denies recent illness, fever, chills, nausea, vomiting, changes in vision, headache, unusual bleeding, abdominal pain, diarrhea, constipation, dizziness, lightheadedness, numbness, tingling, pre- syncope, or syncope. Past Med Surg Social Fam HX - Past Medical History Source: patient, old records reviewed, obtained from family Medical history: arthritis, atrial fibrillation, cancer (Breast ), CHF, COPD, hyperlipidemia, hypertension, malignancy, osteoporosis, pulmonary embolus (5-6 years ago), venous stasis, other Additional medical history: breast cancer Psychiatric history: no psych history - Past Surgical History Surgical History: breast surgery Additional surgical history: Cardiac Ablaison. right mastectomy - Social History Smoking Status: Former smoker Packs per day: 2 PPD - Reports quitting 15 years ago Smokeless Tobacco Status: No Alcohol use: rarely Drug use: none Current living situation: Home Activity Level: Uses cane/walker Recent Out of Country Travel Within the Last 8 Weeks: No Exposure or Possible Exposure to Illness During Travel: No - Family History Mother Race: Family Member Ethnicity: Non- Living Status: Age at : 85 Cause of : CVA Hx Family Cardiac Disorders: Yes (CVA) Hx Family Neurologic Disorders: Yes (CVA) Father Race: Family Member Ethnicity: Non- Living Status: Age at : 84 Cause of : old age Hx Family Cardiac Disorders: Yes (father,mother) Hx Family Respiratory Disorders: Yes (brother) Hx Family Cancer: Yes (self, brothers) Hx Family GI Disorders: No Hx Family Endocrine Disorder: No Hx Family Neuromuscular Disorders: No Hx Family Neurologic Disorders: Yes (mother) Hx Family HEENT Disorders: No Hx Family Autoimmune Disorders: No Brother Race: Family Member Ethnicity: Non- Living Status: Still Living Hx Family Respiratory Disorders: Yes (COPD) Internal Medicine - H&P: Meds Aclidinium [place] [Tudorza Pressair] 1 puff IH BID 05/29/17 [History] Albuterol Sulfate [Proair Hfa] 2 puff IH Q6H PRN 05/29/17 [History] Apixaban [Eliquis] 5 mg PO BID 05/29/17 [History] Budesonide/Formoterol 160/4.5 [Symbicort 160/4.5] 2 puff IH BIDR 05/29/17 [ History] Carvedilol [Coreg] 25 mg PO BID 05/29/17 [History] Furosemide [Lasix] 20 mg PO Q48H 05/29/17 [History] HYDROcodone/Acet 10/325 mg [[place] 10-325 mg] 1 tab PO QID 05/29/17 [History] Losartan Potassium [Cozaar] 100 mg PO DAILY 05/29/17 [History] Potassium Chloride [K-Tab ER] 20 meq PO Q48H 05/29/17 [History] Pravastatin Sodium [Pravachol] 40 mg PO DAILY 05/29/17 [History] Multivit-Min/FA/Lycopen/Lutein [Centrum Silver Men Tablet] 1 tab PO DAILY [History] 3 Allergy/AdvReac Type Severity Reaction Status Date / Time doxycycline Allergy Rash Verified 05/29/17 10:14 All Systems PM: A 10-system review of systems was performed and is negative for pertinent findings except as documented above in the HPI. - Constitutional Constitutional: as per HPI, fatigue, weakness, no chills, no fever(s), no night sweats - EENT Eyes: no change in vision, no discharge, no pain, no photophobia Ears: no ear discharge, no ear pain, no tinnitus Nose, mouth and throat: no dysphagia, no nasal discharge, no neck pain, no sore throat - Breasts Breasts: as per HPI - Cardiovascular Cardiovascular ROS IM: as per HPI, dyspnea, dyspnea on exertion, edema, irregular heart rhythm, no chest pain, no diaphoresis, no lightheadedness, no palpitations, no syncope - Respiratory Respiratory: as per HPI, cough, dyspnea on exertion, pain on inspiration, no dyspnea, no wheezing, no excessive phlegm production - Gastrointestinal Gastrointestinal: no abdominal pain, no diarrhea, no hematemesis, no hematochezia, no melena, no nausea, no vomiting - Genitourinary Genitourinary ROS male: as per HPI - Musculoskeletal Musculoskeletal ROS IM: no numbness, no tingling - Integumentary Integumentary IM: no rash, no unusual bruising - Neurological Neurological ROS: as per HPI, weakness, no confusion, no convulsions, no focal weakness, no numbness, no tingling, no tremor(s) - Psychiatric Psychiatric: as per HPI - Endocrine Endocrine IM: as per HPI - Hematologic/Lymphatic Hematologic/Lymphatic: no easy bruising - Allergic/Immunologic Allergic/Immunologic: as per HPI - Constitutional Vitals: Temp Pulse Resp BP Pulse Ox 97.6 F 101 20 105/80 96 04/11/18 10:29 04/11/18 13:10 04/11/18 13:10 04/11/18 13:10 04/11/18 13:10 General appearance: Present: cooperative, A&O X 3, pleasant, no acute distress, answers questions appropriately Exam: Pt. examined at bedside in ED. Pt. reports increased SOB/dyspnea and weakness/ fatigue over past several weeks. Reports decreased appetite over past week since starting theophylline. Reports cough w/pain but denies any other complaints at this time. VS: 97.8F temp, HR 106, RR 20, BP 97/65, SPO2 96% on 2 L via nasal cannula. Pt. currently meeting sepsis criteria and will be monitored closely. Received two 1L boluses in ED. Lactic acid 2.0. - Head Head exam: Present: atraumatic, normocephalic - Eye Eye exam: Present: PERRL, conjuntiva pink, sclera anicteric Pupils: Present: PERRL - ENT ENT exam: Present: normal exam - Neck Neck exam general surgery: Present: normal inspection, supple, trachea midline. Absent: lymphadenopathy - Respiratory Respiratory exam: Present: CTAB. Absent: accessory muscle use, rales, rhonchi, wheezes - Cardiovascular Cardiovascular exam: Present: irregular rhythm - GI/Abdominal GI/Abdominal exam: Present: normal bowel sounds, soft, no peritoneal signs. Absent: distended, tenderness - Rectal Rectal exam: Present: deferred - Additional comments: exam deferred. - Extremities Exam Extremities exam: Present: pedal edema (2+ pitting edema bilaterally), warm, radial pulses palpable and symmetrical. Absent: calf tenderness, cyanotic - Back Exam Back exam: Present: normal inspection - Neurological Exam Neurological exam: Present: alert, CN II-XII intact, oriented X3, no focal deficits. Absent: pronater drift, facial droop, speech deficit - Psychiatric Psychiatric exam: Present: normal affect, normal mood - Skin Skin exam: Present: dry, intact Internal Med - H&P Results - Labs CBC & Chem 7: 04/11/18 10:39 04/11/18 10:39 - EKG Data Prior EKG available for review: yes EKG comments: 04/11/18 14:11 EKG dated 02/25/18 shows atrial fibrillation with aberrant conduction or ventricular premature complexes and low QRS voltage in extremity leads. EKG dated 04/11/18 shows atrial fibrillation with ventricular premature complexes and low voltage in extremity precordial leads with possible anteroseptal infarct (old). - Diagnostic Studies Chest x-ray Additional comments: Impressions Chest X-Ray 04/11/18 10:10 IMPRESSION: No acute cardiopulmonary process identified. D/ / Ron Hennessy MD / Ron Hennessy MD Interpreting Provider: Ron Hnenessy MD CT scan - chest Additional comments: Impressions Chest CTA 04/11/18 10:48 IMPRESSION: 1. Negative CT angiogram for acute pulmonary embolism. 2. Patchy subpleural ground-glass nodules within the lower lobe suggesting an atypical infectious process. A follow-up CT of the chest in 2 months is recommended to ensure resolution of this finding. 3. 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 D/ / 04/11/2018 12:00:43 Ron Hennessy MD / [email or web address] Interpreting Provider: Ron Hennessy MD - Assessment and plan (1) HCAP (healthcare-associated pneumonia) Current Visit: Yes Status: Acute Assessment and plan: Acute HCAP. Pt. hospitalized in late January for PNA and reports he has not felt well since. Cough for past several weeks accompanied by weakness and fatigue. CTA of the chest today negative for PE but shows patchy subpleural groundglass nodules within the lower lobe suggesting an atypical infectious process. Pt. given IVPB levaquin in ED. Will DC levaquin and administer cefepime IVPB 2,000 mg Q8HR for HCAP coverage. Respiratory infection panel ordered. Legionella and strep pneumoniae urine antigens ordered. Continue pts. inhalers and add Xopenex IH d/t Afib. Supplemental O2 w/titration and SpO2 monitoring. Pt. discussed w/ Dr. Schultz who agrees w/plan of care. Pt. is high risk d/t current HCAP, untreated wound of RLE, worsening weakness requiring use of walker, increasing SOB/dyspnea requiring increased O2 use, hx, and risk factors. Observation. (2) Wound of right lower extremity Current Visit: Yes Status: Acute Assessment and plan: Acute wound of the RLE that pt. states happened approx. 1 month ago when he was getting into his truck and his conde came down on the bumper. Pt. denies being followed by wound care and that family changes his dressing. Tdap booster given in ED. Wound care culture ordered stat. Wound Care consult and daily wound care ordered. IVPB vancomycin w/Pharmacy dosing and Zosyn 3.375 gm Q8HR for infection coverage. Will adjust abx coverage based on culture results if warranted. Qualifiers: Encounter type: initial encounter Qualified Code(s): S81.801A - Unspecified open wound, right lower leg, initial encounter (3) Dyspnea Current Visit: Yes Status: Acute Assessment and plan: Increase in SOB since last hospital admission in 01/2018 for PNA. Pt. reports he used O2 only at night via NC but now must use it 24/. Hx of COPD and CHF. CTA of chest today negative for PE but shows patchy subpleural groundglass nodules within the lower lobes suggesting an atypical infectious process. A follow-up CT of the chest and 2 months is recommended to ensure resolution. Recently started on theophylline by Pulmonology. Continue pts. inhalers for COPD. Add Xopenex IH d/t current Afib. Supplemental O2 w/titration and SpO2 monitoring. Falls/safety precautions and up with assist only. Qualifiers: Dyspnea type: unspecified Qualified Code(s): R06.00 - Dyspnea, unspecified (4) Decrease in appetite Current Visit: Yes Status: Acute Assessment and plan: Acute decrease in appetite, likely d/t recent start of theophylline last week. Pt. and daughter report pt. was started on theophylline on Friday by Pulmonology and pt. has had decreased appetite ever since which can be a side effect. Cardiac diet w/Nutritional consult for PO supplementation. Monitor I&O and daily weight. (5) Weakness of both legs Current Visit: Yes Status: Acute Assessment and plan: Acute bilateral weakness of LEs. Pt. has hx of venous stasis. Reports he was able to ambulate independently prior to admission in 01/2018, but now must use walker. Falls/safety precautions and up with assist only. PT/OT consults ordered to assess for possible rehab needs for post-discharge planning. (6) Drop in hemoglobin Current Visit: Yes Status: Acute Assessment and plan: Acute drop in Hgb. Currently 12.5 on admission. Was 12.7 on 02/28. Pt. denies unusual bleeding but has substantial wound to RLE. Monitor pt. and f/u labs. (7) Hepatic cyst Current Visit: Yes Status: Acute Assessment and plan: Acute hepatic cyst measuring 18 cm according to CTA of the chest today. F/u w/ PCP for monitoring. (8) Congestive heart failure with left ventricular diastolic dysfunction Current Visit: Yes Status: Chronic Assessment and plan: Hx of CHF. BNP currently 272 on admission and pt. has 2+ pitting edema in LEs. Pt. required 0.9 NS IV flid boluses in ED d/t hypotension. Will continue pts. PO lasix for now and change to IVP lasix if pt. becomes fluid overloaded. Will use IV fluids judiciously if warranted. 1.5L daily PO fluid restriction. Continuous cardiac telemetry. Pts. last Echo was in 2016 so Echocardiogram ordered to assess current LVEF. Qualifiers: Congestive heart failure chronicity: acute on chronic Qualified Code(s): I50.33 - Acute on chronic diastolic (congestive) heart failure (9) Atrial fibrillation Current Visit: Yes Status: Chronic Assessment and plan: Hx of chronic atrial fibrillation. Continue pts. Eliquis. Continuous cardiac telemetry. Qualifiers: Atrial fibrillation type: chronic Qualified Code(s): I48.2 - Chronic atrial fibrillation (10) COPD (chronic obstructive pulmonary disease) Current Visit: Yes Status: Chronic Assessment and plan: Hx of chronic COPD. Stable. Continue pts. inhalers and add Xopenex IH d/t pts. hx of Afib. Supplemental O2 w/titration and SpO2 monitoring. Qualifiers: COPD type: unspecified COPD Qualified Code(s): J44.9 - Chronic obstructive pulmonary disease, unspecified (11) HLD (hyperlipidemia) Current Visit: Yes Status: Chronic Assessment and plan: Hx of chronic HLD. Lipid panel in a.m. labs. Continue pts. Pravastatin. Qualifiers: Hyperlipidemia type: pure hypercholesterolemia Qualified Code(s): E78.00 - Pure hypercholesterolemia, unspecified; E78.0 - Pure hypercholesterolemia (12) HTN (hypertension) Current Visit: Yes Status: Chronic Assessment and plan: Hx of chronic HTN. Monitor pt. and VS. Pt. hypotensive on admission requiring IV fluid boluses. Monitor BP closely for continued hypotension and notify provider prior to administering BP or opioid pain medications. Will hold pts. PO Cozaar and Carvedilol for now. Will continue PO lasix and monitor. Qualifiers: Hypertension type: essential hypertension Qualified Code(s): I10 - Essential (primary) hypertension (13) Hx of pulmonary embolus Current Visit: Yes Status: Resolved Assessment and plan: Hx of PE. CTA negative for PE today. Continue pts. Eliquis. (14) DVT prophylaxis Current Visit: Yes Status: Acute Assessment and plan: Continue pts. Eliquis for DVT prophylaxis. Monitor pt. for signs of bleeding. (15) Venous stasis dermatitis of both lower extremities Current Visit: Yes Status: Chronic Assessment and plan: Hx of chronic venous stasis of bilateral LEs. Substantial wound present on RLE. Wound Care consult and daily wound care ordered. Wound culture. IVPB vancomycin with pharmacy dosing and Zosyn 3.375 gm Q8HR for infection coverage. Monitor. - Time Spent With Patient Total time spent is greater than 50% in coordination of care (as documented) at patient's floor/unit and/or counseling patient: Greater than 35 minutes <Fatou Schultz - Last Filed: 04/11/18 19:02> Date of Encounter: 04/11/18 Internal Medicine - H&P: HPI History of present illness: Mr. Stover is a 77 year old male All Systems PM: A 10-system review of systems was performed and is negative for pertinent findings except as documented above in the HPI. - Constitutional Vitals: Temp Pulse Resp BP Pulse Ox 97.8 F 121 16 103/72 95 04/11/18 14:53 04/11/18 14:53 04/11/18 15:40 04/11/18 14:53 04/11/18 15:40 Internal Med - H&P Results - Labs CBC & Chem 7: 04/11/18 10:39 04/11/18 10:39 - Assessment and plan (1) Dyspnea Current Visit: Yes Status: Acute Qualifiers: Dyspnea type: unspecified Qualified Code(s): R06.00 - Dyspnea, unspecified (2) DVT prophylaxis Current Visit: Yes Status: Acute (3) COPD (chronic obstructive pulmonary disease) Current Visit: Yes Status: Chronic Qualifiers: COPD type: unspecified COPD Qualified Code(s): J44.9 - Chronic obstructive pulmonary disease, unspecified (4) HCAP (healthcare-associated pneumonia) Current Visit: Yes Status: Acute (5) Atrial fibrillation Current Visit: Yes Status: Chronic Qualifiers: Atrial fibrillation type: chronic Qualified Code(s): I48.2 - Chronic atrial fibrillation (6) Congestive heart failure with left ventricular diastolic dysfunction Current Visit: Yes Status: Chronic Qualifiers: Congestive heart failure chronicity: acute on chronic Qualified Code(s): I50.33 - Acute on chronic diastolic (congestive) heart failure (7) Weakness of both legs Current Visit: Yes Status: Acute (8) Wound of right lower extremity Current Visit: Yes Status: Acute Qualifiers: Encounter type: initial encounter Qualified Code(s): S81.801A - Unspecified open wound, right lower leg, initial encounter (9) Drop in hemoglobin Current Visit: Yes Status: Acute (10) Decrease in appetite Current Visit: Yes Status: Acute (11) Hepatic cyst Current Visit: Yes Status: Acute (12) HLD (hyperlipidemia) Current Visit: Yes Status: Chronic Qualifiers: Hyperlipidemia type: pure hypercholesterolemia Qualified Code(s): E78.00 - Pure hypercholesterolemia, unspecified; E78.0 - Pure hypercholesterolemia (13) HTN (hypertension) Current Visit: Yes Status: Chronic Qualifiers: Hypertension type: essential hypertension Qualified Code(s): I10 - Essential (primary) hypertension (14) Hx of pulmonary embolus Current Visit: Yes Status: Resolved (15) Venous stasis dermatitis of both lower extremities Current Visit: Yes Status: Chronic - Time Spent With Patient Total time spent is greater than 50% in coordination of care (as documented) at patient's floor/unit and/or counseling patient: - Attending Attestation I have personally performed a face to face evaluation on this patient. I have reviewed and agree with the care plan. History and Exam by me shows: Patient was seen and examined at bedside. Daughter at bedside Patient reports that he had cough with pain on inspiration for about a few weeks. He was recently seen at the framing consultant office and new medications were added. He reports that his cough is mostly dry with minimal amount of sputum. Denies blood in his sputum. I spoke to him and daughter at bedside about the right-sided lower extremity wound below the knee. Daughter provided pictures of the wound from a few weeks back and as compared to today there is significant improvement. No foul- smelling discharge from the lower extremity wound. Denies fever, chills, nausea, vomiting, changes in vision, headache, unusual bleeding, abdominal pain, diarrhea, constipation, dizziness, lightheadedness, numbness, tingling, pre-syncope, or syncope. Vital signs reviewed and stable General: Patient is alert, oriented, no acute distress, speaks in full sentences Head: atraumatic, normocephalic, Eye: normal appearance, PERRL, no scleral icterus, no conjunctival injection ENT: mucous membranes moist, normal external ear exam Neck: normal inspection, trachea midline, full ROM, no carotid bruits Chest: normal inspection, symmetric chest rise Respiratory: Decreased breath sounds bilaterally, occasional crackles in the posterior lung field infrascapularly Cardiovascular: Irregularly irregular s1 and s2 No clicks, rubs, gallops, or murmors. Abdomen: Bowel sounds present normoactive x-4 quadrants. Abdomen is soft, nondistended. no Epigastric tenderness. No guarding or rebound. No organomegaly noted, obese musculoskeletal: Spontaneously moving all extremities. no edema, no calf tenderness Skin: warm, dry, intact. Right lower extremity is wrapped with clean [place] wrap no signs of bleeding Neuro: Alert and oriented x3 Sensation light touch intact. No focal deficit Psych: Patient's affect is normal CTA chest : IMPRESSION: 1. Negative CT angiogram for acute pulmonary embolism. 2. Patchy subpleural ground-glass nodules within the lower lobe suggesting an atypical infectious process. A follow-up CT of the chest in 2 months is recommended to ensure resolution of this finding. 3. 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 Assessment and plan HCAP COPD right lower extremity wound Atrial fibrillation on Eliquis macrocytic anemia HTN HLD H/o PE Continue vancomycin and cefepime no wheezing will hold off of steroids for now Urine antigens negative Respiratory viral panel negative Blood cultures and process - follow Will obtain CT of the right lower extremity CPK B12, folic acid in AM Wound care consult continue inhalers Oxygen via nasal cannula keep sats above 92 Hold all BP meds as he is hypotensive Hold coreg as he is Hypotensive and consider metoprolol 12.5 mg for rate control ( with holding parametes- hold for SBP <100 and HR <60) I discussed CODE STATUS with patient and daughter at bedside he is full code I disucssed above changes with Clif Zepeda
[2018-04-11] MEDS ORDERED: Furosemide 20 MG TABLET PO SCH (14:30)
[2018-04-11] MEDS: Levalbuterol Neb 1.25 MG/3 ML IH SCH ×2 (15:40→21:10)
[2018-04-11] MEDS ORDERED: Piperacillin/Tazobactam 3.375 GM in 0.9 % Sodium Chloride Mini Bag 100 ML IVPB SCH (16:00)
[2018-04-11 16:39] LABS: Adenovirus Not Detected (Not Detect); Bordetella Pertussis Not Detected (Not Detect); Chlamydophila pneumoniae Not Detected (Not Detect); Coronavirus 229E Not Detected (Not Detect); Coronavirus HKU1 Not Detected (Not Detect); Coronavirus NL63 Not Detected (Not Detect); Coronavirus OC43 Not Detected (Not Detect); Human Metapneumovirus Not Detected (Not Detect); Human Rhinovirus/Enterovirus Not Detected (Not Detect); Influenza A Subtype 2009 H1 Not Detected (Not Detect); Influenza A Untypeable Not Detected (Not Detect); Influenza B Not Detected (Not Detect); Mycoplasma pneumoniae Not Detected (Not Detect); Parainfluenza Virus 1 Not Detected (Not Detect); Parainfluenza Virus 2 Not Detected (Not Detect); Parainfluenza Virus 3 Not Detected (Not Detect); Parainfluenza Virus 4 Not Detected (Not Detect); Respiratory Syncytial Virus Not Detected (Not Detect)
[2018-04-11] MEDS: Cefepime HCl 2,000 MG in 0.9 % Sodium Chloride Mini Bag 100 ML IVPB SCH (16:57)
[2018-04-11] MEDS ORDERED: *HR* Metoprolol 5 MG/5 ML VIAL IVP ONE (20:04)
[2018-04-11] MEDS ORDERED: methylPREDNISolone 125 MG/2 ML VIAL IVP ONE (21:08)
[2018-04-11] MEDS: Budesonide/Formoterol 160/4.5 1 PUFF INH IH SCH (21:10)
[2018-04-11] MEDS: traMADol 50 MG TABLET PO PRN (21:19)
[2018-04-11] MEDS: Apixaban 5 MG TABLET PO SCH (21:19)
--- NOTE | 2018-04-11 22:39 | Event Note ---
Date of Encounter: 04/11/18 Time of Encounter: 20:51 I was alerted earlier by pts. nurse DELFINO Kc that pts. HR was varying between 120s and 140s. Pt. had been hypotensive throughout the day and has hx of Afib. Pts. Carvedilol had been held d/t hypotension and Metoprolol ordered PRN for HR. 2.5 IVP Metoprolol was given at 20:22. Alerted by pts. nurse at 20:51 that pts. HR was now jumping from 120s to 160s. BP was 115/82. Went to see pt. who was resting in bed and complaining of SOB. SpO2 was 94% on 2L via NC. Tried oxymask but pt. would not wear. Ordered Mucinex and Xopenex IH given. D/t pts. hx of COPD and current worsening SOB, 125 mg IVP Solu-Medrol ordered. Informed pt. that we would also randomly be checking his blood glucose d/t steroids. Cardizem drip started at 2.5 mg w/titration per protocol to address pts. current Afib w/orders to monitor pts. BP closely for signs of hypotension.
[2018-04-12] MEDS: Cefepime HCl 2,000 MG in 0.9 % Sodium Chloride Mini Bag 100 ML IVPB SCH ×2 (04:59→16:23)
[2018-04-12] MEDS: Levalbuterol Neb 1.25 MG/3 ML IH SCH ×4 (05:47→22:56)
[2018-04-12 06:23] LABS: Basophils % 0.3 %; Hematocrit 34.4 % (37.5-50.1); Hemoglobin 11.3 g/dL (12.9-16.9); Immature Granulocytes % 5.2 % (0-4); Lymphocytes # 0.5 K/mcL (0.6-4.6); Lymphocytes % 7.2 %; Mean Corpuscular HGB Conc 32.8 g/dL (31.6-35.5); Mean Corpuscular Hemoglobin 32.6 pg (28.0-33.3); Mean Corpuscular Volume 99.1 fL (83.0-100.0); Mean Platelet Volume 9.5 fL (9.4-12.4); Monocytes # 0.1 K/mcL (0.0-1.3); Monocytes % 1.3 %; Neutrophils # 5.9 K/mcL (1.6-8.9); Platelet Count 119 K/mcL (140-400); Red Blood Count 3.47 M/mcL (4.19-5.50); Red Cell Distribution Width 13.4 % (11.5-14.5)
[2018-04-12 06:27] LABS: INR 2.2; Prothrombin Time 25.3 Seconds (9.4-12.1)
[2018-04-12 06:29] LABS: Activated Partial Thrombo Time 36.9 Seconds (26.0-36.0)
[2018-04-12 06:43] LABS: Alanine Aminotransferase 17 Units/L (7-52); Albumin 3.4 g/dL (3.5-5.7); Albumin/Globulin Ratio 1.2 (1.1-2.2); Alkaline Phosphatase 122 Units/L (34-104); Aspartate Amino Transferase 14 Units/L (13-39); BUN/Creatinine Ratio 23 (6-26); Bilirubin,Total 0.9 mg/dL (0.3-1.0); Blood Urea Nitrogen 18 mg/dL (8-23); Calcium 8.6 mg/dL (8.6-10.3); Carbon Dioxide 22 mEq/L (23-29); Chloride 105 mEq/L (98-107); Chol/HDL Ratio 2.4 (0-4.9); Cholesterol 119 mg/dL (< 200); Globulin 2.8 g/dL (2.4-3.5); Glucose 122 mg/dL (70-105); HDL Cholesterol 49 mg/dL (40-59); LDL Cholesterol,Calculated 60 mg/dL (0-99); Magnesium 1.8 mg/dL (1.6-2.6); Osmolality,Calculated 289 (280-300); Sodium 138 mEq/L (136-145); Total Protein 6.2 g/dL (6.4-8.9); Triglycerides 49 mg/dL (< 150); eGFR For Non-African Americans > 60 (> 60)
[2018-04-12 06:57] LABS: Platelet Estimate Slight Decrease (Normal)
[2018-04-12] MEDS: traMADol 50 MG TABLET PO PRN ×3 (07:46→22:00)
[2018-04-12] MEDS: Apixaban 5 MG TABLET PO SCH ×2 (07:46→22:00)
[2018-04-12 08:36] LABS: Estimated Average Glucose 123 mg/dl; Hemoglobin A1C 5.9 %
[2018-04-12] MEDS ORDERED: Levofloxacin 750 MG/150 ML 750 MG/150 ML BAG IVPB SCH (09:00)
--- NOTE | 2018-04-12 09:35 | Internal Med Progress Note ---
<Karlo Conde - Last Filed: 04/12/18 13:16> Hospitalist Progress Note - Encounter Date of Encounter: 04/12/18 Time of Encounter: 09:20 - Subjective Interval History: 77M PMHx arthritis, Afib, CHF, COPD, HLD, HTN, breast cancer, osteoporosis, previous PE, chronic venous stasis presented with SOB for several weeks. Patient had episode of Afib RVR last night with HR 120s to 140s and was started on Cardizem drip. He was asymptomatic and continues to be asymptomatic this AM. He denies headaches, blurry vision, CP, palpitations, f/c/n/v/diarrhea, reports that SOB has improved. He has no acute complaints. - Exam Vitals: Temp Pulse Resp BP Pulse Ox 98.0 F 108 16 106/69 97 04/12/18 07:07 04/12/18 07:07 04/12/18 07:07 04/12/18 07:07 04/12/18 07:07 Exam: General appearance: Present: cooperative, A&O X 3, pleasant, no acute distress, answers questions appropriately - Head Head exam: Present: atraumatic, normocephalic - Eye Eye exam: Present: conjuntiva pink, sclera anicteric - ENT ENT exam: Present: normal exam - Neck Neck exam general surgery: Present: normal inspection, supple, trachea midline. Absent: lymphadenopathy - Respiratory Respiratory exam: Present: CTAB. Absent: accessory muscle use, rales, rhonchi, wheezes - Cardiovascular Cardiovascular exam: Present: irregular rhythm - GI/Abdominal GI/Abdominal exam: Present: normal bowel sounds, soft, no peritoneal signs. Absent: distended, tenderness - Extremities Exam Extremities exam: Present: pedal edema (2+ pitting edema bilaterally), warm, radial pulses palpable and symmetrical. Absent: calf tenderness, cyanotic - Back Exam Back exam: Present: normal inspection - Neurological Exam Neurological exam: Present: alert, CN II-XII intact, oriented X3, no focal deficits. Absent: pronater drift, facial droop, speech deficit - Psychiatric Psychiatric exam: Present: normal affect, normal mood - Skin Skin exam: Present: dry, intact - Assessment and Plan (1) Atrial fibrillation with RVR Current Visit: Yes Status: Acute Assessment and Plan: Patient had episode of Afib with RVR last night, Cardizem drip was started. Today, patient continues to be tachycardic in the morning. Heart rate 100s. CTA negative for pulmonary embolism Blood pressure is WNL. Will add Coreg 25mg PO BID for rate control and discontinue cardizem drip. Follow vital signs closely. Lopressor as needed. (2) HCAP (healthcare-associated pneumonia) Current Visit: Yes Status: Acute Assessment and Plan: Patient was hospitalized in late January for PNA and has not felt well since discharge. CTA negative for PE, but possible atypical infectious process. We will continue with cefepime for HCAP coverage. RIP negative. Legionella and strep pneumoniae culture negative. O2 and respiratory therapy as needed (3) COPD (chronic obstructive pulmonary disease) Current Visit: Yes Status: Chronic Assessment and Plan: improved. CTA negative for PE. RIP negative legionella, strep pneumo cultures negative Continue O2 as needed. Continue symbicort, mucinex, xoponex Continue with Cefepime and vancomycin day #2 (4) CHF (congestive heart failure) Current Visit: Yes Status: Chronic Assessment and Plan: Chronic and stable. Lasix as needed. Continue with cardiac monitoring. (5) Wound of right lower extremity Current Visit: Yes Status: Acute Assessment and Plan: Acute wound of the RLE that pt. states happened approx. 1 month ago when he was getting into his truck and his conde came down on the bumper. Tdap booster given in ED. Continue with wound care and daily dressings. Continue with vancomycin. Will adjust abx coverage based on culture results if warranted. (6) HLD (hyperlipidemia) Current Visit: Yes Status: Chronic Assessment and Plan: Continue home med. (7) HTN (hypertension) Current Visit: Yes Status: Chronic Assessment and Plan: Stable. continue home meds. (8) Hx of pulmonary embolus Current Visit: Yes Status: Resolved Assessment and Plan: Continue Eliquis DVT Prophylaxis: Patient on Eliquis 5mg BID - Time Spent with Patient Total time spent is greater than 50% in coordination of care (as documented) at patient's floor/unit and/or counseling patient: Greater than 35 minutes Plan of Care Discussed with: patient Internal Medicine: Result - Labs CBC & Chem 7: 04/12/18 05:29 04/12/18 05:29 Labs: Short CBC 04/12/18 Range/Units 05:29 WBC 6.9 (4.3-11.1) K/mcL Hgb 11.3 L (12.9-16.9) g/dL Hct 34.4 L (37.5-50.1) % Plt Count 119 L (140-400) K/mcL Neutrophils # 5.9 (1.6-8.9) K/mcL BMP 04/12/18 05:29 Sodium 138 Potassium 4.0 Chloride 105 Carbon Dioxide 22 L BUN 18 Creatinine 0.78 Glucose 122 H Calcium 8.6 Liver Function 04/12/18 Range/Units 05:29 Total Bilirubin 0.9 (0.3-1.0) mg/dL AST 14 (13-39) Units/L ALT 17 (7-52) Units/L Alkaline Phosphatase 122 H (34-104) Units/L Albumin 3.4 L (3.5-5.7) g/dL - ABG Interpretation ABG results: PT/INR, D-dimer PT 25.3 Seconds (9.4-12.1) H 04/12/18 05:29 - Impressions Impressions Lower Extremity CT 04/11/18 18:01 IMPRESSION: Diffuse subcutaneous edema. Correlate clinically for cellulitis. No subcutaneous gas or radiopaque foreign body identified. No organized drainable fluid collection evident. No acute osseous abnormality. Gguj-sf-rlhtford tricompartmental osteoarthritis of the knee with small knee effusion. D/ / Max Bowles MD / Max Bowles MD Interpreting Provider: Max Bowles MD Consult Discharge Plan - Plan Referrals: Francisca Anderson MD [Primary Care Provider] - <Cindy Brown - Last Filed: 04/12/18 14:06> Hospitalist Progress Note - Encounter Date of Encounter: 04/12/18 - Exam Vitals: Temp Pulse Resp BP Pulse Ox 98.5 F 100 17 100/65 96 04/12/18 11:47 04/12/18 11:47 04/12/18 11:47 04/12/18 11:47 04/12/18 11:47 - Assessment and Plan (1) Dyspnea Current Visit: Yes Status: Acute (2) DVT prophylaxis Current Visit: Yes Status: Acute (3) COPD (chronic obstructive pulmonary disease) Current Visit: Yes Status: Chronic (4) HCAP (healthcare-associated pneumonia) Current Visit: Yes Status: Acute (5) Atrial fibrillation Current Visit: Yes Status: Chronic (6) Congestive heart failure with left ventricular diastolic dysfunction Current Visit: Yes Status: Chronic (7) Weakness of both legs Current Visit: Yes Status: Acute (8) Wound of right lower extremity Current Visit: Yes Status: Acute (9) Drop in hemoglobin Current Visit: Yes Status: Acute (10) Decrease in appetite Current Visit: Yes Status: Acute (11) Hepatic cyst Current Visit: Yes Status: Acute (12) HLD (hyperlipidemia) Current Visit: Yes Status: Chronic (13) HTN (hypertension) Current Visit: Yes Status: Chronic (14) Hx of pulmonary embolus Current Visit: Yes Status: Resolved (15) Venous stasis dermatitis of both lower extremities Current Visit: Yes Status: Chronic - Time Spent with Patient Total time spent is greater than 50% in coordination of care (as documented) at patient's floor/unit and/or counseling patient: Internal Medicine: Result - Labs CBC & Chem 7: 04/12/18 05:29 04/12/18 05:29 Labs: Short CBC 04/12/18 Range/Units 05:29 WBC 6.9 (4.3-11.1) K/mcL Hgb 11.3 L (12.9-16.9) g/dL Hct 34.4 L (37.5-50.1) % Plt Count 119 L (140-400) K/mcL Neutrophils # 5.9 (1.6-8.9) K/mcL BMP 04/12/18 05:29 Sodium 138 Potassium 4.0 Chloride 105 Carbon Dioxide 22 L BUN 18 Creatinine 0.78 Glucose 122 H Calcium 8.6 Liver Function 04/12/18 Range/Units 05:29 Total Bilirubin 0.9 (0.3-1.0) mg/dL AST 14 (13-39) Units/L ALT 17 (7-52) Units/L Alkaline Phosphatase 122 H (34-104) Units/L Albumin 3.4 L (3.5-5.7) g/dL - ABG Interpretation ABG results: PT/INR, D-dimer PT 25.3 Seconds (9.4-12.1) H 04/12/18 05:29 - Impressions Impressions Lower Extremity CT 04/11/18 18:01 IMPRESSION: Diffuse subcutaneous edema. Correlate clinically for cellulitis. No subcutaneous gas or radiopaque foreign body identified. No organized drainable fluid collection evident. No acute osseous abnormality. Kcuv-js-othimrit tricompartmental osteoarthritis of the knee with small knee effusion. D/ / Max Bowles MD / Max Bowles MD Interpreting Provider: Max Bowles MD - Attending Attestation 77M PMHx arthritis, Afib, CHF, COPD, HLD, HTN, breast cancer, osteoporosis, previous PE, chronic venous stasis presented with SOB for several weeks. Patient had episode of Afib RVR last night with HR 120s to 140s and was started on Cardizem drip. He was asymptomatic and continues to be asymptomatic this AM. He denies headaches, blurry vision, CP, palpitations, f/c/n/v/diarrhea, reports that SOB has improved Plan A fib with RVR. Weaned off cardizem drip and transitioned to po coreg HCAP. Continue vanc and cefepime <Karlo Conde - Last Filed: 04/12/18 13:16> (3) COPD (chronic obstructive pulmonary disease) Qualifiers: COPD type: unspecified COPD Qualified Code(s): J44.9 - Chronic obstructive pulmonary disease, unspecified (5) Wound of right lower extremity Qualifiers: Encounter type: initial encounter Qualified Code(s): S81.801A - Unspecified open wound, right lower leg, initial encounter (6) HLD (hyperlipidemia) Qualifiers: Hyperlipidemia type: pure hypercholesterolemia Qualified Code(s): E78.00 - Pure hypercholesterolemia, unspecified; E78.0 - Pure hypercholesterolemia (7) HTN (hypertension) Qualifiers: Hypertension type: essential hypertension Qualified Code(s): I10 - Essential (primary) hypertension <Cindy Brown - Last Filed: 04/12/18 14:06> (1) Dyspnea Qualifiers: Dyspnea type: unspecified Qualified Code(s): R06.00 - Dyspnea, unspecified (3) COPD (chronic obstructive pulmonary disease) Qualifiers: COPD type: unspecified COPD Qualified Code(s): J44.9 - Chronic obstructive pulmonary disease, unspecified (5) Atrial fibrillation Qualifiers: Atrial fibrillation type: chronic Qualified Code(s): I48.2 - Chronic atrial fibrillation (6) Congestive heart failure with left ventricular diastolic dysfunction Qualifiers: Congestive heart failure chronicity: acute on chronic Qualified Code(s): I50.33 - Acute on chronic diastolic (congestive) heart failure (8) Wound of right lower extremity Qualifiers: Encounter type: initial encounter Qualified Code(s): S81.801A - Unspecified open wound, right lower leg, initial encounter (12) HLD (hyperlipidemia) Qualifiers: Hyperlipidemia type: pure hypercholesterolemia Qualified Code(s): E78.00 - Pure hypercholesterolemia, unspecified; E78.0 - Pure hypercholesterolemia (13) HTN (hypertension) Qualifiers: Hypertension type: essential hypertension Qualified Code(s): I10 - Essential (primary) hypertension
[2018-04-12] MEDS: Budesonide/Formoterol 160/4.5 1 PUFF INH IH SCH ×2 (10:55→22:57)
[2018-04-12] MEDS ORDERED: Aminoglycoside Consult 1 EACH MC ONE (11:48)
[2018-04-12] MEDS ORDERED: Perflutren Lipid Microsphere 1.3 ML in 0.9 % Sodium Chloride 8.7 ML IVP ONE (11:48)
[2018-04-13] MEDS: Levalbuterol Neb 1.25 MG/3 ML IH SCH ×2 (03:22→10:46)
[2018-04-13 04:44] LABS: Hematocrit 31.6 % (37.5-50.1); Hemoglobin 10.2 g/dL (12.9-16.9); Mean Corpuscular HGB Conc 32.3 g/dL (31.6-35.5); Mean Corpuscular Hemoglobin 32.2 pg (28.0-33.3); Mean Corpuscular Volume 99.7 fL (83.0-100.0); Mean Platelet Volume 9.9 fL (9.4-12.4); Monocytes # 0.7 K/mcL (0.0-1.3); Platelet Count 114 K/mcL (140-400); Red Blood Count 3.17 M/mcL (4.19-5.50); Red Cell Distribution Width 13.3 % (11.5-14.5)
[2018-04-13 05:05] LABS: Alanine Aminotransferase 15 Units/L (7-52); Albumin/Globulin Ratio 1.2 (1.1-2.2); Alkaline Phosphatase 99 Units/L (34-104); Aspartate Amino Transferase 13 Units/L (13-39); BUN/Creatinine Ratio 30 (6-26); Bilirubin,Total 0.6 mg/dL (0.3-1.0); Blood Urea Nitrogen 27 mg/dL (8-23); Calcium 8.3 mg/dL (8.6-10.3); Carbon Dioxide 24 mEq/L (23-29); Chloride 107 mEq/L (98-107); Globulin 2.6 g/dL (2.4-3.5); Glucose 173 mg/dL (70-105); Osmolality,Calculated 293 (280-300); Potassium 3.6 mEq/L (3.5-5.1); Sodium 137 mEq/L (136-145); Total Protein 5.6 g/dL (6.4-8.9); eGFR For Non-African Americans > 60 (> 60)
[2018-04-13] MEDS: Cefepime HCl 2,000 MG in 0.9 % Sodium Chloride Mini Bag 100 ML IVPB SCH (05:34)
[2018-04-13 05:43] LABS: Lymphocytes # 0.5 K/mcL (0.6-4.6); Neutrophils # 7.1 K/mcL (1.6-8.9)
[2018-04-13 05:44] LABS: Platelet Estimate Slight Decrease (Normal)
--- NOTE | 2018-04-13 08:51 | Discharge Summary ---
<Karlo Conde - Last Filed: 04/13/18 13:02> Date of Encounter: 04/13/18 Time of Encounter: 09:00 - Discharge Diagnosis (1) Atrial fibrillation with RVR Priority: Primary Status: Acute (2) HCAP (healthcare-associated pneumonia) Priority: Primary Status: Acute (3) COPD (chronic obstructive pulmonary disease) Priority: Secondary Status: Chronic Qualifiers: COPD type: unspecified COPD Qualified Code(s): J44.9 - Chronic obstructive pulmonary disease, unspecified (4) Wound of right lower extremity Priority: Secondary Status: Acute Qualifiers: Encounter type: initial encounter Qualified Code(s): S81.801A - Unspecified open wound, right lower leg, initial encounter (5) HLD (hyperlipidemia) Priority: Secondary Status: Chronic Qualifiers: Hyperlipidemia type: pure hypercholesterolemia Qualified Code(s): E78.00 - Pure hypercholesterolemia, unspecified; E78.0 - Pure hypercholesterolemia (6) HTN (hypertension) Priority: Secondary Status: Chronic Qualifiers: Hypertension type: essential hypertension Qualified Code(s): I10 - Essential (primary) hypertension (7) Hx of pulmonary embolus Priority: Secondary Status: Resolved Hospital course: Mr. Stover is a 77 year old male PMHx arthiritis, atrial fibrillation, breast ancer, CHF, COPD, HLD, HTN, osteoporosis, previous PE 5 years ago, chronic venous stasis presented to the ED with complaints of SOB for several weeks. Patient had cough with pain on inspiration. Also reported weakness and fatigue since his last admission in January, when he was admitted for pneumonia. Patient had increased O2 uptake since his discharge in January. Pulmonology had started hi on Kevin 24 a few days prior to presentation. Admits to [facility] in appetite as well. Patient also has acute wound on RLE that happened 1 month prior to admission when he was getting into his truck and his conde came down on the bumper. CTA chest negative for PE but shows patchy subpleural groundglass nodules within the lower lobe suggesting an atypical infectious process. Patient received dose of Levaquin in ED and was started on Cefepime upon admission on . On the night of 04/11/18, patient had episode of Afib with RVR 120s-140s and he became hypotensive. He was started on Cardizem drip. By the next morning, HR was well controlled and drip was discontinued. His Afib is currently well controlled with Coreg 25mg PO BID. Last HR in the 70s. Today, patient reports his SOB has improved, denies CP, coughing, f/c/n/v/ diarrhea. RIP is negative. Legionella and strep pneumonia negative.He is back to baseline Will be discharge patient home with continued therapy of Levaquin 750mg PO daily for 5 more days in the setting of acute respiratory failure at presentation and recent hospitalization for pneumonia. Also Mucinex for decongestion. He will follow up with PCP. Patient verbalizes understanding and is agreeable to management plan. Discharge discussed with: patient - Time Spent with Patient Total time spent providing and/or coordinating discharge services: Greater than 30 minutes - Discharge Medications Prescriptions: GuaiFENesin ER [Mucinex] 600 mg PO BID 15 Days #30 tbbp.12hr Levofloxacin [Levaquin] 750 mg PO DAILY 5 Days #5 tablet Home Medications: Aclidinium [place] [Tudorza Pressair] 1 puff IH BID 05/29/17 [History] Albuterol Sulfate [Proair Hfa] 2 puff IH Q6H PRN 05/29/17 [History] Apixaban [Eliquis] 5 mg PO BID 05/29/17 [History] Budesonide/Formoterol 160/4.5 [Symbicort 160/4.5] 2 puff IH BIDR 05/29/17 [ History] Carvedilol [Coreg] 25 mg PO BID 05/29/17 [History] Furosemide [Lasix] 20 mg PO Q48H 05/29/17 [History] HYDROcodone/Acet 10/325 mg [Gunpowder 10-325 mg] 1 tab PO QID 05/29/17 [History] Losartan Potassium [Cozaar] 100 mg PO DAILY 05/29/17 [History] Potassium Chloride [K-Tab ER] 20 meq PO Q48H 05/29/17 [History] Pravastatin Sodium [Pravachol] 40 mg PO DAILY 05/29/17 [History] Multivit-Min/FA/Lycopen/Lutein [Centrum Silver Men Tablet] 1 tab PO DAILY [History] Albuterol Neb [Proventil Neb] 2.5 mg IH TID PRN 04/13/18 [History] GuaiFENesin ER [Mucinex] 600 mg PO BID 15 Days #30 tbbp.12hr 04/13/18 [Rx] Levofloxacin [Levaquin] 750 mg PO DAILY 5 Days #5 tablet 04/13/18 [Rx] Theophylline Anhydrous [Kevin-24] 400 mg PO DAILY 04/13/18 [History] Allergies/Adverse Reactions: 3 Allergy/AdvReac Type Severity Reaction Status Date / Time doxycycline Allergy Rash Verified 05/29/17 10:14 Date of admission: 04/12/18 14:35 Primary care physician: Francisca Anderson MD Discharging clinician: Karlo Conde Anticipated date of discharge: 04/13/18 - Constitutional Vitals: Temp Pulse Resp BP Pulse Ox 98.4 F 74 17 109/72 98 04/13/18 06:49 04/13/18 06:49 04/13/18 06:49 04/13/18 06:49 04/13/18 06:49 General appearance: Present: cooperative, A&O X 3, pleasant, no acute distress, answers questions appropriately Exam: General appearance: Present: cooperative, A&O X 3, pleasant, no acute distress, answers questions appropriately - Head Head exam: Present: atraumatic, normocephalic - Eye Eye exam: Present: conjuntiva pink, sclera anicteric - ENT ENT exam: Present: normal exam - Neck Neck exam general surgery: Present: normal inspection, supple, trachea midline. Absent: lymphadenopathy - Respiratory Respiratory exam: Present: CTAB. Absent: accessory muscle use, rales, rhonchi, wheezes - Cardiovascular Cardiovascular exam: Present: irregular rhythm - GI/Abdominal GI/Abdominal exam: Present: normal bowel sounds, soft, no peritoneal signs. Absent: distended, tenderness - Extremities Exam Extremities exam: Present: pedal edema (2+ pitting edema bilaterally), warm, radial pulses palpable and symmetrical. Absent: calf tenderness, cyanotic - Back Exam Back exam: Present: normal inspection - Neurological Exam Neurological exam: Present: alert, CN II-XII intact, oriented X3, no focal deficits. Absent: pronater drift, facial droop, speech deficit - Psychiatric Psychiatric exam: Present: normal affect, normal mood - Skin Skin exam: Present: dry, intact - Patient Status Disposition: Home, Self-Care Condition: Good - Discharge Instructions Instructions: Guaifenesin (By mouth), Levofloxacin (By mouth), Pneumonia (DC) Follow Up With: Francisca Anderson MD [Primary Care Provider] - 04/21/18 10:00 am - Diet and Activity Activity: increase activity as tolerated Diet: advance to your usual diet <Cindy Brown - Last Filed: 04/13/18 13:18> Date of Encounter: 04/13/18 - Discharge Diagnosis (1) Dyspnea Status: Acute Qualifiers: Dyspnea type: unspecified Qualified Code(s): R06.00 - Dyspnea, unspecified (2) DVT prophylaxis Status: Acute (3) COPD (chronic obstructive pulmonary disease) Status: Chronic Qualifiers: COPD type: unspecified COPD Qualified Code(s): J44.9 - Chronic obstructive pulmonary disease, unspecified (4) HCAP (healthcare-associated pneumonia) Status: Acute (5) Atrial fibrillation Status: Chronic Qualifiers: Atrial fibrillation type: chronic Qualified Code(s): I48.2 - Chronic atrial fibrillation (6) Congestive heart failure with left ventricular diastolic dysfunction Status: Chronic Qualifiers: Congestive heart failure chronicity: acute on chronic Qualified Code(s): I50.33 - Acute on chronic diastolic (congestive) heart failure (7) Weakness of both legs Status: Acute (8) Wound of right lower extremity Status: Acute Qualifiers: Encounter type: initial encounter Qualified Code(s): S81.801A - Unspecified open wound, right lower leg, initial encounter (9) Drop in hemoglobin Status: Acute (10) Decrease in appetite Status: Acute (11) Hepatic cyst Status: Acute (12) HLD (hyperlipidemia) Status: Chronic Qualifiers: Hyperlipidemia type: pure hypercholesterolemia Qualified Code(s): E78.00 - Pure hypercholesterolemia, unspecified; E78.0 - Pure hypercholesterolemia (13) HTN (hypertension) Status: Chronic Qualifiers: Hypertension type: essential hypertension Qualified Code(s): I10 - Essential (primary) hypertension (14) Hx of pulmonary embolus Status: Resolved (15) Venous stasis dermatitis of both lower extremities Status: Chronic Hospital course: Mr. Stover is a 77 year old male - Time Spent with Patient Total time spent providing and/or coordinating discharge services: Date of admission: 04/12/18 14:35 Primary care physician: Francisca Anderson MD - Constitutional Vitals: Temp Pulse Resp BP Pulse Ox 97.8 F 106 17 111/74 94 04/13/18 10:41 04/13/18 10:41 04/13/18 10:41 04/13/18 10:41 04/13/18 10:41 - Attending Attestation 77M PMHx arthritis, Afib, CHF, COPD, HLD, HTN, breast cancer, osteoporosis, previous PE, chronic venous stasis presented with SOB for several weeks. Patient had episode of Afib RVR last night with HR 120s to 140s and was started on Cardizem drip. He was asymptomatic and continues to be asymptomatic this AM. He denies headaches, blurry vision, CP, palpitations, f/c/n/v/diarrhea, reports that SOB has improved Exam HR: rate controlled. Irregularly irregular Gen: NAD Lungs: CTAB Plan A fib with RVR. Weaned off cardizem drip and transitioned to po coreg HCAP. Continue vanc and cefepime. Discharge on po levaquin. Agree with discharge summary above
[2018-04-13] MEDS ORDERED: Levofloxacin 750 MG/150 ML 750 MG/150 ML BAG IVPB SCH (09:00)
[2018-04-13] MEDS ORDERED: levoFLOXacin 750 MG TABLET PO SCH (10:15)
[2018-04-13] MEDS: Apixaban 5 MG TABLET PO SCH (10:30)
[2018-04-13 10:42] VITALS: BP 111/74
[2018-04-13] MEDS: Budesonide/Formoterol 160/4.5 1 PUFF INH IH SCH (10:45)
--- NOTE | 2018-04-13 13:09 | Electrocardiograph Report ---
[place] [address] Test Date: 2018-04-11 Pat Name: Vernon Stover Department: EXAM8 Room: 2A36 Gender: M [employer]: : 1940 Requested By: Shaun Wong Order Number: [id number] Reading MD: Kajal Hernández Measurements Intervals [place] Rate: 108 P: MA: QRS: 73 QRSD: 99 T: 44 QT: 345 QTc: 463 Interpretive Statements Atrial fibrillation Ventricular premature complex Low voltage, extremity and precordial leads Probable anteroseptal infarct, old Electronically Signed On 04-13-2018 13:07:45 EDT by Kajal Hernández
== END 2018-04-13 11:49 | disposition home or self-care (01) | DRG 193 ==
LOC: EMEROOARM 10:03 → 2ANU 10:03
PROVIDERS: ADMIT Internal Medicine; ATTEND Internal Medicine